=== PATIENT | female | born 1975 | race African-American/Black ===

== ENCOUNTER 2019-02-27 19:19 | Emergency (ER) | payer MEDICAID ==
[~2019-02-27] VITALS: Ht 170.2 cm; Wt 61.2 kg
[2019-02-27] MEDS ORDERED: ACETAMINOPHEN 500 MG TAB PO ONE ×2 (19:29→19:30)
[2019-02-27 22:27] VITALS: BP 161/84
== END 2019-02-27 22:28 | disposition home or self-care (01) ==
LOC: ER 19:20
DX: S83.92XA Sprain of unspecified site of left knee, initial encounter (principal); I10 Essential (primary) hypertension; V43.52XA Car driver injured in collision with other type car in traffic accident, initial encounter; Y93.89 Activity, other specified; Y92.488 Other paved roadways as the place of occurrence of the external cause; Y99.8 Other external cause status
CPT/HCPCS: 73564

== ENCOUNTER 2021-12-04 15:14 | Emergency (ER) | payer MEDICAID ==
[~2021-12-04] VITALS: Ht 170.2 cm; Wt 76.0 kg
[2021-12-04 16:02] VITALS: BP 184/110
[2021-12-04] MEDS ORDERED: CEPH-510 PO (16:39)
[2021-12-04] MEDS ORDERED: TRIA0.02 TOP (16:39)
== END 2021-12-04 16:59 | disposition home or self-care (01) ==
LOC: ER 15:14
DX: L23.9 Allergic contact dermatitis, unspecified cause (principal); M67.432 Ganglion, left wrist; I10 Essential (primary) hypertension

== ENCOUNTER 2022-02-03 02:32 | Emergency (ER) | payer MEDICAID ==
[~2022-02-03] VITALS: Ht 170.2 cm; Wt 52.3 kg
[~2022-02-03 02:32] MED LIST: CEPH-510 PO; TRIA0.02 TOP
[2022-02-03 05:18] VITALS: BP 156/95
[2022-02-03] MEDS ORDERED: AMOX-277 PO (05:37)
[2022-02-03] MEDS ORDERED: PRED20TA2 PO (05:37)
== END 2022-02-03 06:05 | disposition home or self-care (01) ==
LOC: ER 02:32
DX: J06.9 Acute upper respiratory infection, unspecified (principal); I10 Essential (primary) hypertension; Z20.822 Contact with and (suspected) exposure to COVID-19
CPT/HCPCS: 36415; 71046; 87426; 87804

== ENCOUNTER 2022-06-30 19:07 | Inpatient (IN) | payer MEDICAID ==
[~2022-06-30] VITALS: Ht 170.2 cm; Wt 48.0 kg
[~2022-06-30 19:07] MED LIST changes: +AMOX-277 PO; +PRED20TA2 PO
[2022-06-30] MEDS ORDERED: MORPHINE SULFATE INJ 2 MG/ml SYRG ONE (20:09)
[2022-06-30] MEDS ORDERED: HEPARIN SODIUM (PORCINE) 5000 UNITS/ML 1ML VIAL ONE (20:09)
[2022-06-30] MEDS ORDERED: ONDANSETRON HCL 4 MG/2 ML VIAL ONE (20:10)
[2022-06-30] MEDS ORDERED: METOPROLOL TARTRATE 1MG/1ML-5ML VIAL IV ONE (20:15)
[2022-06-30] MEDS ORDERED: HEPARIN SODIUM (PORCINE) 5000 UNITS/ML 1ML VIAL IV ONE (20:15)
[2022-06-30] MEDS ORDERED: MORPHINE SULFATE INJ 2 MG/ml SYRG IV ONE (20:15)
[2022-06-30] MEDS ORDERED: ONDANSETRON HCL 4 MG/2 ML VIAL IV ONE (20:15)
[2022-06-30] MEDS ORDERED: HEPARIN DRIP/D5W 100UNITS/ML 250 ML IV SCH (20:15)
[2022-06-30] MEDS ORDERED: SODIUM CHLORIDE 0.9% 500 ML IV ONE (20:30)
[2022-06-30 20:56] LABS: Albumin 3.1 g/dL (3.4-5.0); Calcium 8.5 mg/dL (8.5-10.1)
[2022-06-30 20:57] LABS: Hemoglobin 7.7 g/dL (12.2-16.2); Mean Corpuscular Hemoglobin 20.1 pg (28.0-32.0); Red Blood Cells 3.83 10^6/uL (4.0-5.20); White Blood Cell 4.8 10^3/uL (4.4-10.8)
[2022-06-30 20:58] LABS: Hematocrit 25.1 % (36.0-46.0); Mean Corpuscular Hgb Conc. 30.6 g/dL (32.0-36.0); Mean Corpuscular Volume 65.6 fL (80.0-100.0)
[2022-06-30 21:00] LABS: BUN/Creatinine Ratio 13.9 (10.0-20.0); Bilirubin, Total 0.4 mg/dL (0.2-1.0); Red Cell Distribution Width 20.6 % (11.8-14.3); Total Protein 7.2 g/dL (6.4-8.2)
[2022-06-30] MEDS ORDERED: dilTIAZem 25 MG/5 ML VIAL IV ONE (21:00)
[2022-06-30] MEDS ORDERED: LORazepam 2MG/ML-1ML VIAL IV ONE (21:00)
[2022-06-30 21:01] LABS: Basophils % (manual) 0 (0.0-2.0); Blast Cells 0; Metamyelocytes % 0; Myelocytes % 0; Promyelocytes % 0; Reactive Lymphocytes 0
[2022-06-30 21:06] LABS: Potassium 2.4 mmol/L (3.5-5.1)
[2022-06-30 21:11] LABS: INR 1.04 (0.9-1.15); Partial Thromboplastin Time 34.3 sec (24.6-33.4)
[2022-06-30] MEDS ORDERED: ALBUMIN 5% 250 ML IV ONE (21:30)
[2022-06-30 21:36] LABS: Band Neutrophils % (manual) 5; Eosinophils % (manual) 5 (0-7); Lymphocytes % (manual) 28 (10.0-50.0); Monocytes % (manual) 9 (0-12)
[2022-06-30] MEDS ORDERED: NOREPINEPHRINE 8 MG/250ML KIT 250 ML IV ONE (21:42)
[2022-06-30] MEDS ORDERED: NOREPINEPHRINE 8 MG/250ML KIT 250 ML IV SCH (21:45)
[2022-06-30] MEDS ORDERED: FUROSEMIDE 20 MG/2 ML VIAL IV ONE (22:15)
[2022-06-30] MEDS ORDERED: ONDANSETRON HCL 4 MG/2 ML VIAL IV PRN (22:15)
[2022-06-30] MEDS ORDERED: MORPHINE SULFATE INJ 2 MG/ml SYRG IV PRN (22:15)
[2022-06-30] MEDS ORDERED: NITROGLYCERIN 0.4 MG SL TAB SL PRN (22:15)
[2022-06-30] MEDS: POTASSIUM CHL 20MEQ/100ML 100 ML IV SCH (23:20)
[2022-06-30 23:33] LABS: Lactic Acid w/Reflex 2.6 mmol/L (0.4-2.0)
[2022-07-01] VITALS (7 sets, daily range): BP systolic 118–131; BP diastolic 74–96
[2022-07-01] MEDS: POTASSIUM CHL 20MEQ/100ML 100 ML IV SCH ×2 (01:36→04:00)
[2022-07-01 02:17] LABS: Urine Bacteria NONE SEEN /hpf (None Seen); Urine Blood Negative /uL (Negative); Urine Specific Gravity 1.004 (1.001-1.035); Urine WBC <1 /hpf (0 - 5)
[2022-07-01 04:09] LABS: Hemoglobin 7.2 g/dL (12.2-16.2); White Blood Cell 4.2 10^3/uL (4.4-10.8)
[2022-07-01 04:12] LABS: Hematocrit 22.9 % (36.0-46.0); Mean Corpuscular Hemoglobin 21.7 pg (28.0-32.0); Mean Corpuscular Hgb Conc. 31.5 g/dL (32.0-36.0); Red Blood Cells 3.32 10^6/uL (4.0-5.20)
[2022-07-01 04:18] LABS: Red Cell Distribution Width 21.7 % (11.8-14.3)
[2022-07-01 04:19] LABS: Basophils % (manual) 0 (0.0-2.0); Blast Cells 0; Metamyelocytes % 0; Monocytes % (manual) 0 (0-12); Myelocytes % 0; Promyelocytes % 0; Reactive Lymphocytes 0
[2022-07-01 04:33] LABS: Potassium 3.3 mmol/L (3.5-5.1)
[2022-07-01 04:39] LABS: INR 1.14 (0.9-1.15)
[2022-07-01 04:42] LABS: Albumin 2.9 g/dL (3.4-5.0); BUN/Creatinine Ratio 15.2 (10.0-20.0); Bilirubin, Total 0.4 mg/dL (0.2-1.0); Calcium 7.9 mg/dL (8.5-10.1); Total Protein 6.1 g/dL (6.4-8.2)
[2022-07-01 04:46] LABS: Partial Thromboplastin Time 97.1 sec (24.6-33.4)
[2022-07-01] MEDS ORDERED: HEPARIN DRIP/D5W 100UNITS/ML 250 ML IV SCH (05:00)
[2022-07-01 05:08] LABS: Band Neutrophils % (manual) 7; Eosinophils % (manual) 13 (0-7); Lymphocytes % (manual) 36 (10.0-50.0)
[2022-07-01] MEDS: ASPirin 81 mg TAB PO SCH (10:00)
[2022-07-01] MEDS ORDERED: AMOXICILLIN/CLAVUL 875 MG TAB PO SCH (10:00)
[2022-07-01] MEDS: PANTOPRAZOLE 40 MG TAB PO SCH (10:00)
[2022-07-01 12:57] LABS: INR 1.03 (0.9-1.15); Partial Thromboplastin Time 34.8 sec (24.6-33.4)
[2022-07-01] MEDS: FERROUS SULFATE 325mg EC TAB PO SCH (18:08)
[2022-07-01] MEDS: ATORVASTATIN 20 MG TAB PO SCH (22:20)
[2022-07-02] VITALS (8 sets, daily range): BP systolic 117–160; BP diastolic 91–114
[2022-07-02 05:44] LABS: Hemoglobin 8.8 g/dL (12.2-16.2)
[2022-07-02 05:46] LABS: Hematocrit 27.8 % (36.0-46.0); Mean Corpuscular Hemoglobin 21.5 pg (28.0-32.0); Mean Corpuscular Hgb Conc. 31.8 g/dL (32.0-36.0); Mean Corpuscular Volume 67.8 fL (80.0-100.0); Red Blood Cells 4.09 10^6/uL (4.0-5.20); White Blood Cell 5.2 10^3/uL (4.4-10.8)
[2022-07-02 06:03] LABS: BUN/Creatinine Ratio 12.5 (10.0-20.0)
[2022-07-02 06:05] LABS: Red Cell Distribution Width 21.9 % (11.8-14.3)
[2022-07-02 06:06] LABS: Basophils % (manual) 0 (0.0-2.0); Blast Cells 0; Metamyelocytes % 0; Myelocytes % 0; Promyelocytes % 0; Reactive Lymphocytes 0
[2022-07-02 06:13] LABS: Potassium 2.9 mmol/L (3.5-5.1)
[2022-07-02] MEDS ORDERED: ACETAMINOPHEN 325 MG TAB PO ONE (06:30)
[2022-07-02] MEDS ORDERED: dilTIAZem 25 MG/5 ML VIAL IV ONE (06:30)
[2022-07-02] MEDS ORDERED: POTASSIUM CHL 20 Meq TABLET PO ONE (06:30)
[2022-07-02] MEDS ORDERED: LABETALOL HCL 5 MG/ML 4ML SYRINGE IV ONE (06:45)
[2022-07-02] MEDS: FERROUS SULFATE 325mg EC TAB PO SCH ×2 (08:16→17:30)
[2022-07-02 08:27] LABS: Band Neutrophils % (manual) 5; Eosinophils % (manual) 14 (0-7); Lymphocytes % (manual) 28 (10.0-50.0); Monocytes % (manual) 3 (0-12)
[2022-07-02] MEDS: MULTIPLE VITAMIN TAB PO SCH (09:27)
[2022-07-02] MEDS: ASPirin 81 mg TAB PO SCH (09:27)
[2022-07-02] MEDS: FOLIC ACID 1 MG TAB PO SCH (09:27)
[2022-07-02] MEDS: PANTOPRAZOLE 40 MG TAB PO SCH (09:27)
[2022-07-02] MEDS ORDERED: METOPROLOL SUCCINATE XL 50 MG TAB PO SCH (11:15)
[2022-07-02] MEDS ORDERED: LABETALOL HCL 5 MG/ML 4ML SYRINGE IV PRN (22:00)
[2022-07-02] MEDS: ATORVASTATIN 20 MG TAB PO SCH (23:12)
[2022-07-03 05:00] VITALS: BP 162/105
[2022-07-03 05:42] LABS: Hematocrit 28.3 % (36.0-46.0)
[2022-07-03 05:43] LABS: Hemoglobin 8.9 g/dL (12.2-16.2); Mean Corpuscular Hemoglobin 21.5 pg (28.0-32.0); Mean Corpuscular Hgb Conc. 31.3 g/dL (32.0-36.0); Mean Corpuscular Volume 68.6 fL (80.0-100.0); Red Blood Cells 4.13 10^6/uL (4.0-5.20); White Blood Cell 6.1 10^3/uL (4.4-10.8)
[2022-07-03 05:49] LABS: Red Cell Distribution Width 22.1 % (11.8-14.3)
[2022-07-03 05:51] LABS: Basophils % (manual) 0 (0.0-2.0); Blast Cells 0; Metamyelocytes % 0; Myelocytes % 0; Promyelocytes % 0; Reactive Lymphocytes 0
[2022-07-03 06:05] LABS: BUN/Creatinine Ratio 12.5 (10.0-20.0)
[2022-07-03 06:17] LABS: Potassium 2.9 mmol/L (3.5-5.1)
[2022-07-03] MEDS ORDERED: POTASSIUM CHL 20 Meq TABLET PO ONE (07:00)
[2022-07-03] MEDS ORDERED: POTASSIUM CHL 20MEQ/100ML 100 ML IV ONE (07:00)
[2022-07-03 07:52] LABS: Band Neutrophils % (manual) 6; Eosinophils % (manual) 8 (0-7); Lymphocytes % (manual) 43 (10.0-50.0); Monocytes % (manual) 3 (0-12)
[2022-07-03] MEDS ORDERED: POTASSIUM CHLORIDE 40 MEQ, LIDOCAINE 1% (LOCAL ANESTH.) 4 ML in SODIUM CHL 0.9% 250 ML IV ONE (08:00)
[2022-07-03] MEDS: FERROUS SULFATE 325mg EC TAB PO SCH (08:54)
[2022-07-03 09:00] VITALS: BP 154/102
[2022-07-03] MEDS ORDERED: LISINOPRIL 10 MG TAB PO SCH (10:00)
[2022-07-03] MEDS ORDERED: METOPROLOL SUCCINATE XL 50 MG TAB PO SCH (10:00)
[2022-07-03] MEDS ORDERED: LOSARTAN POTASSIUM 25 MG TAB PO SCH (10:00)
[2022-07-03 10:51] VITALS: BP 154/102
[2022-07-03] MEDS: ASPirin 81 mg TAB PO SCH (10:52)
[2022-07-03] MEDS: FOLIC ACID 1 MG TAB PO SCH (10:54)
[2022-07-03] MEDS: PANTOPRAZOLE 40 MG TAB PO SCH (10:54)
[2022-07-03] MEDS: MULTIPLE VITAMIN TAB PO SCH (10:54)
[2022-07-03 13:00] VITALS: BP 150/101
[2022-07-03] MEDS ORDERED: METO-6 PO (14:54)
[2022-07-03] MEDS ORDERED: LISI-716 PO (14:54)
== END 2022-07-03 15:30 | disposition home or self-care (01) | DRG 190 ==
LOC: ER 19:07 → TELE 22:26 → TELE-EAST 07-01 22:49
PROVIDERS: ADMIT Nurse Practitioner; ATTEND Nurse Practitioner Acute Care
PROC: 30233N1 Transfusion of Nonautologous Red Blood Cells into Peripheral Vein, Percutaneous Approach (ICD-10-PCS; principal; 2022-07-01)
DX: I21.3 ST elevation (STEMI) myocardial infarction of unspecified site (principal); J96.00 Acute respiratory failure, unspecified whether with hypoxia or hypercapnia; I50.21 Acute systolic (congestive) heart failure; R64 Cachexia; D69.6 Thrombocytopenia, unspecified; I42.1 Obstructive hypertrophic cardiomyopathy; D50.9 Iron deficiency anemia, unspecified; D25.9 Leiomyoma of uterus, unspecified; I08.1 Rheumatic disorders of both mitral and tricuspid valves; N18.9 Chronic kidney disease, unspecified; R54 Age-related physical debility; E87.6 Hypokalemia; I48.91 Unspecified atrial fibrillation; Z68.1 Body mass index [BMI] 19.9 or less, adult; Z79.899 Other long term (current) drug therapy; Z82.3 Family history of stroke; Z82.49 Family history of ischemic heart disease and other diseases of the circulatory system
CPT/HCPCS: 36415; 36430; 71045; 76937; 80048; 80053; 81001; 83605; 83880; 84132; 84484; 85007; 85027; 85045; 85610; 85730; 86850; 86880; 86900; 86901; 86920; 93005; 93306; 96361; 96365; 96368; 96375; G0378; J2001; J2405; J3480; J3490

== ENCOUNTER 2022-09-18 17:55 | Inpatient (IN) | payer MEDICAID ==
[~2022-09-18] VITALS: Ht 170.2 cm; Wt 44.4 kg
[~2022-09-18 17:55] MED LIST changes: -AMOX-277 PO; +AMOX875T4 PO; +LISI10TA34 PO; +METO-6 PO
[2022-09-18 19:10] LABS: Basophils # (auto) 0 10 ^3/uL (0-0.2); Hemoglobin 10.9 g/dL (12.2-16.2); Monocytes # (auto) 0.4 10 ^3/uL (0-1.3); Monocytes % (auto) 10.4 % (0.0-12.0)
[2022-09-18 19:12] LABS: Basophils % (auto) 0.8 % (0.0-2.0); Eosinophils # (auto) 0.1 10 ^3/uL (0-0.8); Eosinophils % (auto) 3.1 % (0.0-7.0); Hematocrit 34.1 % (36.0-46.0); Lymphocytes # (auto) 1.8 10 ^3/uL (0.4-5.4); Lymphocytes % (auto) 43.8 % (10.0-50.0); Mean Corpuscular Hemoglobin 22.6 pg (28.0-32.0); Mean Corpuscular Volume 70.7 fL (80.0-100.0); Neutrophils # (auto) 1.7 10 ^3/uL (1.6-8.6); Neutrophils % (auto) 41.9 % (37.0-80.0); Nucleated Red Blood Cells % 0.5 %; Red Blood Cells 4.82 10^6/uL (4.0-5.20); Red Cell Distribution Width 21.7 % (11.8-14.3)
[2022-09-18 19:28] LABS: INR 0.97 (0.9-1.15); Partial Thromboplastin Time 30.4 SEC (24.5-34.5)
[2022-09-18 19:31] LABS: Albumin 3.5 g/dL (3.4-5.0); Magnesium 2.8 mg/dL (1.6-2.6)
[2022-09-18 19:36] LABS: BUN/Creatinine Ratio 8.8 (10.0-20.0); Bilirubin, Total 0.5 mg/dL (0.2-1.0); Total Protein 7.8 g/dL (6.4-8.2)
[2022-09-18] MEDS ORDERED: IOHEXOL 350 MG/ML 100ML IJ ONE (19:40)
[2022-09-18 19:45] VITALS: PULSE 72; RESP 22; O2SAT 97
[2022-09-18 20:13] LABS: Potassium 2.2 mmol/L (3.5-5.1)
[2022-09-18] MEDS ORDERED: SODIUM CHLORIDE 0.9% 1,000 ML IV ONE ×2 (20:15→22:00)
[2022-09-18] MEDS ORDERED: POTASSIUM CHL 20 Meq TABLET PO ONE (20:30)
[2022-09-18] MEDS ORDERED: POTASSIUM CHL 20MEQ/100ML 100 ML IV ONE (20:30)
[2022-09-18] MEDS ORDERED: ACETAMINOPHEN 325 MG TAB PO PRN (21:30)
[2022-09-18] MEDS ORDERED: ONDANSETRON HCL 4 MG/2 ML VIAL IV PRN (21:30)
[2022-09-18] MEDS ORDERED: HYDROcodone-ACET 5/325MG TAB PO PRN (21:30)
[2022-09-18] MEDS ORDERED: DOCUSATE SOD 100 MG CAP PO PRN (21:30)
[2022-09-18] MEDS ORDERED: HEPARIN SODIUM (PORCINE) 5000 UNITS/ML 1ML VIAL IV ONE (21:30)
[2022-09-18] MEDS ORDERED: MORPHINE SULFATE INJ 2 MG/ml SYRG IV PRN (21:45)
[2022-09-18] MEDS ORDERED: NITROGLYCERIN 0.4 MG SL TAB SL PRN (21:45)
[2022-09-18] MEDS ORDERED: NOREPINEPHRINE 8 MG/250ML KIT 250 ML IV ONE (22:12)
[2022-09-18] MEDS: NOREPINEPHRINE 8 MG/250ML KIT 250 ML IV SCH (22:19)
[2022-09-18] MEDS: SODIUM CHLOR 0.9% PF (SALINE LOCK) 10ML VIAL/SYR IV SCH (22:19)
[2022-09-18] MEDS: FAMOTIDINE (10MG/ML) 2ML VL IV SCH (23:09)
[2022-09-19] VITALS (49 sets, daily range): BP systolic 95–138; BP diastolic 50–79; PULSE 56–77; RESP 11–25; TEMP 96.4–98.3; O2SAT 77–100
[2022-09-19] MEDS ORDERED: SODIUM BICARBONATE 8.4 % INJ 50ML VIAL IV ONE (03:15)
[2022-09-19] MEDS: SODIUM CHLOR 0.9% PF (SALINE LOCK) 10ML VIAL/SYR IV SCH ×3 (05:38→22:30)
[2022-09-19 06:48] LABS: Basophils # (auto) 0 10 ^3/uL (0-0.2); Eosinophils # (auto) 0 10 ^3/uL (0-0.8); Hemoglobin 8.7 g/dL (12.2-16.2); Lymphocytes # (auto) 1.1 10 ^3/uL (0.4-5.4)
[2022-09-19 06:50] LABS: Basophils % (auto) 0.3 % (0.0-2.0); Eosinophils % (auto) 1.4 % (0.0-7.0); Hematocrit 26.7 % (36.0-46.0); Lymphocytes % (auto) 32.3 % (10.0-50.0); Mean Corpuscular Hemoglobin 22.8 pg (28.0-32.0); Mean Corpuscular Hgb Conc. 32.4 g/dL (32.0-36.0); Mean Corpuscular Volume 70.2 fL (80.0-100.0); Monocytes # (auto) 0.3 10 ^3/uL (0-1.3); Monocytes % (auto) 9.1 % (0.0-12.0); Neutrophils % (auto) 56.9 % (37.0-80.0); Nucleated Red Blood Cells % 0.6 %; Red Blood Cells 3.81 10^6/uL (4.0-5.20); White Blood Cell 3.5 10^3/uL (4.4-10.8)
[2022-09-19 07:01] LABS: Red Cell Distribution Width 21.3 % (11.8-14.3)
[2022-09-19 07:15] LABS: Albumin 2.7 g/dL (3.4-5.0); BUN/Creatinine Ratio 9.2 (10.0-20.0); Bilirubin, Total 0.6 mg/dL (0.2-1.0); Calcium 7.6 mg/dL (8.5-10.1); Total Protein 6.4 g/dL (6.4-8.2)
[2022-09-19 07:37] LABS: Potassium 2.1 mmol/L (3.5-5.1)
[2022-09-19 08:29] LABS: Cholesterol 123 mg/dL (< 200); HDL Cholesterol 32 mg/dL (40-59); LDL Cholesterol 67 mg/dL (< 100); Triglycerides 158 mg/dL (< 150)
[2022-09-19] MEDS: POTASSIUM CHL 20MEQ/100ML 100 ML IV SCH ×6 (08:43→22:50)
[2022-09-19] MEDS ORDERED: POTASSIUM CHL 20 Meq TABLET PO ONE (09:00)
[2022-09-19] MEDS: B-COMPLEX W/ C & FOLIC ACID(NEPHROVITE TAB) PO SCH (09:35)
[2022-09-19] MEDS: ASPirin 81 mg TAB PO SCH (09:35)
[2022-09-19] MEDS: HEPARIN SODIUM (PORCINE) 5000 UNITS/ML 1ML VIAL SC SCH ×2 (09:37→22:30)
[2022-09-19] MEDS ORDERED: FUROSEMIDE 20 MG/2 ML VIAL IV SCH (10:00)
[2022-09-19 13:16] LABS: Urine Bacteria FEW /hpf (None Seen); Urine Blood 3+ /uL (Negative); Urine Mucus FEW (None Seen); Urine Specific Gravity 1.014 (1.001-1.035); Urine WBC 25 /hpf (0 - 5)
[2022-09-19 13:36] LABS: Alcohol, Urine < 3.0 mg/dL (0-10); Amphetamine Screen, Urine POSITIVE (NEGATIVE); Barbiturate Scree,Urine NEGATIVE (NEGATIVE); Benzodiazephine Screen, Urine NEGATIVE (NEGATIVE); Cannabinoid Screen, Urine NEGATIVE (NEGATIVE); Cocaine Screen, Urine NEGATIVE (NEGATIVE)
[2022-09-19 13:43] LABS: Opiate Scree,Urine NEGATIVE (NEGATIVE); Phencyclidine Screen, Urine NEGATIVE (NEGATIVE)
[2022-09-19] MEDS ORDERED: POTASSIUM CHLORIDE 60 MEQ, LIDOCAINE 1% (LOCAL ANESTH.) 6 ML in SODIUM CHL 0.9% 500 ML IV ONE (19:45)
[2022-09-20] VITALS (24 sets, daily range): BP systolic 102–141; BP diastolic 56–95; PULSE 56–89; RESP 11–33; TEMP 97.9–99; O2SAT 50–100
[2022-09-20] MEDS: POTASSIUM CHL 20MEQ/100ML 100 ML IV SCH ×4 (00:47→11:45)
[2022-09-20 03:58] LABS: Hemoglobin 7.9 g/dL (12.2-16.2); White Blood Cell 2.9 10^3/uL (4.4-10.8)
[2022-09-20 04:01] LABS: Hematocrit 24.3 % (36.0-46.0); Mean Corpuscular Hemoglobin 23.2 pg (28.0-32.0); Mean Corpuscular Hgb Conc. 32.5 g/dL (32.0-36.0); Mean Corpuscular Volume 71.4 fL (80.0-100.0)
[2022-09-20 04:16] LABS: Potassium 3.1 mmol/L (3.5-5.1)
[2022-09-20 04:17] LABS: Red Cell Distribution Width 21.5 % (11.8-14.3)
[2022-09-20 04:20] LABS: Band Neutrophils % (manual) 0; Basophils % (manual) 0 (0.0-2.0); Blast Cells 0; Eosinophils % (manual) 0 (0-7); Promyelocytes % 0
[2022-09-20 04:22] LABS: Albumin 2.7 g/dL (3.4-5.0); BUN/Creatinine Ratio 10.2 (10.0-20.0); Bilirubin, Total 0.3 mg/dL (0.2-1.0); Phosphorus 4.4 mg/dL (2.5-4.90); Total Protein 6.5 g/dL (6.4-8.2); Uric Acid 12.2 mg/dL (2.6-6.0)
[2022-09-20 05:18] LABS: Lymphocytes % (manual) 47 (10.0-50.0); Metamyelocytes % 2; Monocytes % (manual) 1 (0-12); Myelocytes % 3; Reactive Lymphocytes 2
[2022-09-20] MEDS: SODIUM CHLOR 0.9% PF (SALINE LOCK) 10ML VIAL/SYR IV SCH ×3 (06:04→22:19)
[2022-09-20] MEDS ORDERED: LOPERAMIDE HCL 2 MG CAP/TAB PO ONE (08:00)
[2022-09-20] MEDS: NOREPINEPHRINE 8 MG/250ML KIT 250 ML IV SCH ×2 (08:15→22:00)
[2022-09-20] MEDS: SODIUM CHLORIDE 0.9% 1,000 ML IV SCH ×2 (08:17→22:32)
[2022-09-20] MEDS: ASPirin 81 mg TAB PO SCH (09:38)
[2022-09-20] MEDS: B-COMPLEX W/ C & FOLIC ACID(NEPHROVITE TAB) PO SCH (09:38)
[2022-09-20] MEDS: HEPARIN SODIUM (PORCINE) 5000 UNITS/ML 1ML VIAL SC SCH ×2 (09:39→22:24)
[2022-09-20] MEDS ORDERED: POTASSIUM PHOSPHATE 22 MEQ in SODIUM CHL 0.9% 100 ML IV ONE (12:15)
[2022-09-20 13:41] LABS: Urine Bacteria FEW /hpf (None Seen); Urine Blood 2+ /uL (Negative); Urine Specific Gravity 1.011 (1.001-1.035); Urine WBC 8 /hpf (0 - 5)
[2022-09-20 14:08] LABS: Protein, Urine 90.9 mg/dL (0.0-11.9)
[2022-09-20 16:43] LABS: Magnesium 1.9 mg/dL (1.6-2.6); Potassium 3.5 mmol/L (3.5-5.1)
[2022-09-20] MEDS: LOPERAMIDE HCL 2 MG CAP/TAB PO PRN ×2 (17:49→22:54)
[2022-09-20] MEDS: FAMOTIDINE (10MG/ML) 2ML VL IV SCH (22:18)
[2022-09-20] MEDS ORDERED: LORazepam 2MG/ML-1ML VIAL IV PRN (23:00)
[2022-09-21] VITALS (20 sets, daily range): BP systolic 103–153; BP diastolic 52–89; PULSE 60–90; RESP 10–30; TEMP 98.2–99.2; O2SAT 81–100
[2022-09-21 05:06] LABS: % Iron Saturation 5.5 % (15-50); Thyroid Stimulating Hormone 0.35 uIU/mL (0.358-3.74)
[2022-09-21 05:07] LABS: Alanine Aminotransferase 26 U/L (13-56); Albumin 2.7 g/dL (3.4-5.0); Alkaline Phosphatase 96 U/L (45-117); Aspartate Aminotransferase 33 U/L (15-37); Bilirubin, Direct < 0.1 mg/dL (0-0.2); Bilirubin, Total 0.4 mg/dL (0.2-1.0); Total Protein 6.5 g/dL (6.4-8.2)
[2022-09-21 05:11] LABS: Ferritin 242.1 ng/mL (10-322)
[2022-09-21] MEDS: SODIUM CHLOR 0.9% PF (SALINE LOCK) 10ML VIAL/SYR IV SCH ×3 (06:20→22:31)
[2022-09-21 08:04] LABS: Folate (Folic Acid) 22.42 ng/mL (5.38-24)
[2022-09-21 09:04] LABS: Hematocrit 24.2 % (36.0-46.0); Hemoglobin 7.6 g/dL (12.2-16.2); Mean Corpuscular Hemoglobin 22.6 pg (28.0-32.0); Mean Corpuscular Hgb Conc. 31.5 g/dL (32.0-36.0); Mean Corpuscular Volume 71.7 fL (80.0-100.0); Red Blood Cells 3.38 10^6/uL (4.0-5.20); Red Cell Distribution Width 22.3 % (11.8-14.3); White Blood Cell 2.3 10^3/uL (4.4-10.8)
[2022-09-21 09:05] LABS: Basophils % (manual) 0 (0.0-2.0); Blast Cells 0; Promyelocytes % 0; Reactive Lymphocytes 0
[2022-09-21 09:06] LABS: Albumin 2.7 g/dL (3.4-5.0); BUN/Creatinine Ratio 13.2 (10.0-20.0); Calcium 8.3 mg/dL (8.5-10.1); Phosphorus 3.6 mg/dL (2.5-4.90); Potassium 3.2 mmol/L (3.5-5.1)
[2022-09-21 09:53] LABS: Band Neutrophils % (manual) 9; Eosinophils % (manual) 2 (0-7); Lymphocytes % (manual) 46 (10.0-50.0); Metamyelocytes % 1; Monocytes % (manual) 8 (0-12); Myelocytes % 3
[2022-09-21] MEDS: SODIUM CHLORIDE 0.9% 1,000 ML IV SCH (10:40)
[2022-09-21] MEDS ORDERED: POTASSIUM CHL 20 Meq TABLET PO ONE (11:00)
[2022-09-21] MEDS: B-COMPLEX W/ C & FOLIC ACID(NEPHROVITE TAB) PO SCH (11:25)
[2022-09-21] MEDS: ASPirin 81 mg TAB PO SCH (11:25)
[2022-09-21] MEDS: LOPERAMIDE HCL 2 MG CAP/TAB PO PRN ×2 (11:25→17:14)
[2022-09-21 20:00] LABS: Cholesterol 102 mg/dL (< 200); HDL Cholesterol 35 mg/dL (40-59); LDL Cholesterol 50 mg/dL (< 100); Triglycerides 155 mg/dL (< 150)
[2022-09-21] MEDS ORDERED: ATORVASTATIN 20 MG TAB PO SCH (22:00)
[2022-09-21] MEDS: NOREPINEPHRINE 8 MG/250ML KIT 250 ML IV SCH (22:00)
[2022-09-22] VITALS (7 sets, daily range): BP systolic 101–112; BP diastolic 58–70; PULSE 79–99; RESP 17–20; TEMP 98–99.1; O2SAT 93–100
[2022-09-22 03:44] LABS: Hemoglobin 7.3 g/dL (12.2-16.2); Mean Corpuscular Hgb Conc. 31.7 g/dL (32.0-36.0); Mean Corpuscular Volume 72.5 fL (80.0-100.0); Red Blood Cells 3.17 10^6/uL (4.0-5.20); White Blood Cell 2.4 10^3/uL (4.4-10.8)
[2022-09-22 03:45] LABS: Red Cell Distribution Width 22.2 % (11.8-14.3)
[2022-09-22 03:47] LABS: Albumin 2.5 g/dL (3.4-5.0); Basophils % (manual) 0 (0.0-2.0); Blast Cells 0; Calcium 8.2 mg/dL (8.5-10.1); Metamyelocytes % 0; Potassium 3.6 mmol/L (3.5-5.1); Promyelocytes % 0; Reactive Lymphocytes 0
[2022-09-22 03:52] LABS: BUN/Creatinine Ratio 17.2 (10.0-20.0); Bilirubin, Total 0.2 mg/dL (0.2-1.0); Total Protein 6.3 g/dL (6.4-8.2)
[2022-09-22 04:28] LABS: Eosinophils % (manual) 3 (0-7); Monocytes % (manual) 11 (0-12); Myelocytes % 1
[2022-09-22 04:29] LABS: Band Neutrophils % (manual) 6; Lymphocytes % (manual) 28 (10.0-50.0)
[2022-09-22] MEDS: SODIUM CHLOR 0.9% PF (SALINE LOCK) 10ML VIAL/SYR IV SCH ×3 (06:14→22:45)
[2022-09-22] MEDS: B-COMPLEX W/ C & FOLIC ACID(NEPHROVITE TAB) PO SCH (09:43)
[2022-09-22] MEDS: ASPirin 81 mg TAB PO SCH (09:43)
[2022-09-22] MEDS: SODIUM CHLORIDE 0.9% 1,000 ML IV SCH ×2 (11:52)
[2022-09-22] MEDS: LACTATED RINGER'S 1,000 ML IV SCH (13:50)
[2022-09-22] MEDS: SODIUM FERR GLUC 62.5MG/5ML 125 MG in SODIUM CHL 0.9% 100 ML IV SCH (15:28)
[2022-09-22] MEDS: LOPERAMIDE HCL 2 MG CAP/TAB PO PRN (15:29)
[2022-09-22] MEDS: FAMOTIDINE (10MG/ML) 2ML VL IV SCH (22:45)
[2022-09-23] VITALS (7 sets, daily range): BP systolic 103–117; BP diastolic 54–75; PULSE 83–95; RESP 16–20; TEMP 97.5–98.6; O2SAT 95–100
[2022-09-23] MEDS: LACTATED RINGER'S 1,000 ML IV SCH ×2 (03:05→14:13)
[2022-09-23] MEDS: SODIUM CHLOR 0.9% PF (SALINE LOCK) 10ML VIAL/SYR IV SCH ×3 (05:29→22:15)
[2022-09-23 09:37] LABS: Basophils # (auto) 0 10 ^3/uL (0-0.2); Hemoglobin 7.4 g/dL (12.2-16.2); Monocytes # (auto) 0.3 10 ^3/uL (0-1.3); Neutrophils # (auto) 1.1 10 ^3/uL (1.6-8.6); Nucleated Red Blood Cells % 0.2 %
[2022-09-23 09:39] LABS: Basophils % (auto) 0.6 % (0.0-2.0); Eosinophils # (auto) 0.2 10 ^3/uL (0-0.8); Eosinophils % (auto) 6.3 % (0.0-7.0); Hematocrit 24.1 % (36.0-46.0); Lymphocytes % (auto) 37.6 % (10.0-50.0); Mean Corpuscular Hemoglobin 23.3 pg (28.0-32.0); Mean Corpuscular Hgb Conc. 30.7 g/dL (32.0-36.0); Mean Corpuscular Volume 75.8 fL (80.0-100.0); Monocytes % (auto) 11.2 % (0.0-12.0); Neutrophils % (auto) 44.3 % (37.0-80.0); Red Blood Cells 3.18 10^6/uL (4.0-5.20); Red Cell Distribution Width 23.2 % (11.8-14.3); White Blood Cell 2.6 10^3/uL (4.4-10.8)
[2022-09-23 09:51] LABS: BUN/Creatinine Ratio 19.6 (10.0-20.0); Calcium 8.3 mg/dL (8.5-10.1); Potassium 3.2 mmol/L (3.5-5.1)
[2022-09-23] MEDS: B-COMPLEX W/ C & FOLIC ACID(NEPHROVITE TAB) PO SCH (09:57)
[2022-09-23] MEDS: SODIUM FERR GLUC 62.5MG/5ML 125 MG in SODIUM CHL 0.9% 100 ML IV SCH (12:37)
[2022-09-23] MEDS: LOPERAMIDE HCL 2 MG CAP/TAB PO PRN (21:27)
[2022-09-23] MEDS ORDERED: FAMOTIDINE (10MG/ML) 2ML VL IV SCH (22:00)
[2022-09-24] MEDS: LOPERAMIDE HCL 2 MG CAP/TAB PO PRN ×2 (02:04→12:17)
[2022-09-24 05:00] VITALS: BP 101/56; PULSE 91; RESP 17; TEMP 98.7; O2SAT 100
[2022-09-24] MEDS: LACTATED RINGER'S 1,000 ML IV SCH (05:45)
[2022-09-24] MEDS: SODIUM CHLOR 0.9% PF (SALINE LOCK) 10ML VIAL/SYR IV SCH ×2 (06:00→14:29)
[2022-09-24 06:21] LABS: Hematocrit 22.3 % (36.0-46.0); Mean Corpuscular Hgb Conc. 31.6 g/dL (32.0-36.0)
[2022-09-24 06:32] LABS: Hemoglobin 7.1 g/dL (12.2-16.2); Mean Corpuscular Hemoglobin 23.1 pg (28.0-32.0); Mean Corpuscular Volume 73.3 fL (80.0-100.0); Red Blood Cells 3.05 10^6/uL (4.0-5.20); Red Cell Distribution Width 22.2 % (11.8-14.3); White Blood Cell 2.8 10^3/uL (4.4-10.8)
[2022-09-24 06:35] LABS: Basophils % (manual) 0 (0.0-2.0); Blast Cells 0; Metamyelocytes % 0; Myelocytes % 0; Promyelocytes % 0; Reactive Lymphocytes 0
[2022-09-24 06:40] LABS: Albumin 2.4 g/dL (3.4-5.0); BUN/Creatinine Ratio 20.6 (10.0-20.0); Bilirubin, Total 0.2 mg/dL (0.2-1.0); Calcium 8.1 mg/dL (8.5-10.1); Potassium 2.8 mmol/L (3.5-5.1); Total Protein 5.9 g/dL (6.4-8.2)
[2022-09-24] MEDS ORDERED: POTASSIUM CHL 20 Meq TABLET PO ONE (07:00)
[2022-09-24 07:55] LABS: Band Neutrophils % (manual) 5; Eosinophils % (manual) 1 (0-7); Lymphocytes % (manual) 53 (10.0-50.0); Monocytes % (manual) 3 (0-12)
[2022-09-24 08:00] VITALS: BP 112/61; PULSE 100; PULSE 93; RESP 20; TEMP 98.8; O2SAT 98
[2022-09-24] MEDS ORDERED: POTA-220 PO (08:24)
[2022-09-24] MEDS ORDERED: FERR-7 PO (08:24)
[2022-09-24] MEDS ORDERED: CALC10TA PO (08:26)
[2022-09-24 09:00] VITALS: BP_SYST 112; BP_SYST 127; BP_DIAS 61; BP_DIAS 74; PULSE 100; PULSE 85; RESP 18; RESP 20; TEMP 98; TEMP 98.8; O2SAT 95; O2SAT 98
[2022-09-24] MEDS: B-COMPLEX W/ C & FOLIC ACID(NEPHROVITE TAB) PO SCH (10:35)
[2022-09-24 11:01] VITALS: BP 112/61; PULSE 100; RESP 20; TEMP 98.8; O2SAT 98
[2022-09-24] MEDS: SODIUM FERR GLUC 62.5MG/5ML 125 MG in SODIUM CHL 0.9% 100 ML IV SCH (12:17)
[2022-09-24 13:00] VITALS: BP_SYST 108; BP_SYST 124; BP_DIAS 61; BP_DIAS 79; PULSE 82; PULSE 90; RESP 16; RESP 20; TEMP 98; O2SAT 100; O2SAT 92
== END 2022-09-24 14:56 | disposition home or self-care (01) | DRG 45 ==
LOC: ER 17:55 → TELE 21:58 → ICU WEST 09-19 08:06 → TELE-CENTR 09-21 21:00
PROVIDERS: ADMIT Family Medicine; ATTEND Family Medicine
DX: I63.9 Cerebral infarction, unspecified (principal); N17.0 Acute kidney failure with tubular necrosis; I21.4 Non-ST elevation (NSTEMI) myocardial infarction; E43 Unspecified severe protein-calorie malnutrition; D61.818 Other pancytopenia; I13.2 Hypertensive heart and chronic kidney disease with heart failure and with stage 5 chronic kidney disease, or end stage renal disease; D69.6 Thrombocytopenia, unspecified; I42.2 Other hypertrophic cardiomyopathy; N18.5 Chronic kidney disease, stage 5; N17.9 Acute kidney failure, unspecified; E87.8 Other disorders of electrolyte and fluid balance, not elsewhere classified; I65.23 Occlusion and stenosis of bilateral carotid arteries; I48.20 Chronic atrial fibrillation, unspecified; I95.9 Hypotension, unspecified; D50.9 Iron deficiency anemia, unspecified; F15.10 Other stimulant abuse, uncomplicated; D53.9 Nutritional anemia, unspecified; E87.6 Hypokalemia; I50.32 Chronic diastolic (congestive) heart failure; I08.1 Rheumatic disorders of both mitral and tricuspid valves; I25.2 Old myocardial infarction; Z82.49 Family history of ischemic heart disease and other diseases of the circulatory system; Z82.3 Family history of stroke; Z80.9 Family history of malignant neoplasm, unspecified; Z83.3 Family history of diabetes mellitus; Z68.1 Body mass index [BMI] 19.9 or less, adult
CPT/HCPCS: 36415; 36556; 36600; 70450; 70551; 71045; 74176; 80048; 80053; 80061; 80069; 80076; 80307; 81001; 82570; 82607; 82728; 82746; 82805; 82962; 83036; 83540; 83550; 83615; 83735; 83880; 84100; 84132; 84156; 84300; 84436; 84443; 84484; 84550; 85007; 85025; 85027; 85045; 85610; 85730; 86038; 86701; 86703; 86880; 87045; 87081; 87427; 87493; 93005; 93306; 93886; 96361; 96365; 96375; 97163; G0378; J2001; J3480; J3490

== ENCOUNTER 2022-10-02 16:45 | Inpatient (IN) | payer MEDICAID ==
[~2022-10-02] VITALS: Ht 170.2 cm; Wt 62.4 kg
[~2022-10-02 16:45] MED LIST changes: +CALC10TA PO; +FERR-7 PO; +POTA-220 PO
[2022-10-02 17:10] VITALS: PULSE 89; RESP 19; O2SAT 99
[2022-10-02] MEDS ORDERED: ACETAMINOPHEN 325 MG TAB PO ONE (17:30)
[2022-10-02] MEDS ORDERED: FOLIC ACID 1 MG, MULTIPLE VITAMIN 10 ML, MAGNESIUM SULF SDV 50% 8 MEQ, THIAMINE INJ 100... INJ SCH ×5 (17:43)
[2022-10-02 17:51] VITALS: PULSE 87; RESP 16; O2SAT 97
[2022-10-02 18:12] LABS: Hematocrit 26.7 % (36.0-46.0); Hemoglobin 8.6 g/dL (12.2-16.2); Mean Corpuscular Hemoglobin 23.4 pg (28.0-32.0); Mean Corpuscular Hgb Conc. 32.2 g/dL (32.0-36.0); Mean Corpuscular Volume 72.8 fL (80.0-100.0); Red Blood Cells 3.67 10^6/uL (4.0-5.20)
[2022-10-02 18:23] LABS: Red Cell Distribution Width 21.1 % (11.8-14.3)
[2022-10-02 18:24] LABS: Anion Gap 35 (5-15); Calcium 7.7 mg/dL (8.5-10.1); Carbon Dioxide 14 mmol/L (21-32); Chloride 69 mmol/L (98-107); Glucose 109 mg/dL (74-106); Lipase 165 U/L (73-393); Magnesium 2.3 mg/dL (1.6-2.6)
[2022-10-02 18:30] LABS: Alanine Aminotransferase 22 U/L (13-56); Albumin 3.5 g/dL (3.4-5.0); Alkaline Phosphatase 152 U/L (45-117); Aspartate Aminotransferase 30 U/L (15-37); BUN/Creatinine Ratio 19.1 (10.0-20.0); Bilirubin, Total 0.6 mg/dL (0.2-1.0); Blood Alcohol < 3.0 mg/dL (<10); GFR African American 7 mL/min; GFR Non-African American 6 mL/min
[2022-10-02 18:31] LABS: White Blood Cell 1.7 10^3/uL (4.4-10.8)
[2022-10-02 18:32] LABS: Basophils % (manual) 0 (0.0-2.0); Blast Cells 0; Eosinophils % (manual) 0 (0-7); Promyelocytes % 0; Reactive Lymphocytes 0
[2022-10-02 18:40] LABS: Blood Urea Nitrogen 148 mg/dL (7-18); Potassium 2.8 mmol/L (3.5-5.1); Sodium 118 mmol/L (136-145)
[2022-10-02 18:59] LABS: INR 1.04 (0.9-1.15); Partial Thromboplastin Time 26.2 SEC (24.5-34.5); Prothrombin Time 10.9 sec (9.3-11.8)
[2022-10-02 19:04] LABS: Band Neutrophils % (manual) 26; Lymphocytes % (manual) 26 (10.0-50.0); Metamyelocytes % 10; Monocytes % (manual) 13 (0-12); Myelocytes % 5; Platelet Estimate Adequate
[2022-10-02 19:05] LABS: Anisocytosis Slight; Hypochromia Slight
[2022-10-02] MEDS ORDERED: POTASSIUM EFFERVESENT TAB 25 MEQ GT ONE (19:15)
[2022-10-02] MEDS ORDERED: SODIUM CHLORIDE 0.9% 2,000 ML IV ONE (19:15)
[2022-10-02 20:00] VITALS: PULSE 70; RESP 14; O2SAT 100
[2022-10-02] MEDS: CALCIUM GLUC 1,000mg/50ml-NS 50 ML IV SCH ×2 (20:49→21:23)
[2022-10-02] MEDS ORDERED: ACETAMINOPHEN 325 MG TAB PO PRN (22:00)
[2022-10-02] MEDS ORDERED: ONDANSETRON HCL 4 MG/2 ML VIAL IV PRN (22:00)
[2022-10-02] MEDS ORDERED: MORPHINE SULFATE INJ 2 MG/ml SYRG IV PRN (22:45)
[2022-10-02] MEDS ORDERED: NITROGLYCERIN 0.4 MG SL TAB SL PRN (22:45)
[2022-10-02] MEDS: POTASSIUM CHL 20MEQ/100ML 100 ML IV SCH (22:51)
[2022-10-02] MEDS: SODIUM CHLOR 0.9% PF (SALINE LOCK) 10ML VIAL/SYR IV SCH (22:51)
[2022-10-02] MEDS: HEPARIN SODIUM (PORCINE) 5000 UNITS/ML 1ML VIAL SC SCH (22:57)
[2022-10-03] MEDS: POTASSIUM CHL 20MEQ/100ML 100 ML IV SCH (00:46)
[2022-10-03] MEDS: HYDROcodone-ACET 5/325MG TAB PO PRN ×2 (01:04→21:23)
[2022-10-03] MEDS: SODIUM CHLOR 0.9% PF (SALINE LOCK) 10ML VIAL/SYR IV SCH ×3 (06:04→21:06)
[2022-10-03 06:14] LABS: Hematocrit 22.8 % (36.0-46.0); Hemoglobin 7.3 g/dL (12.2-16.2); Mean Corpuscular Hemoglobin 23.6 pg (28.0-32.0); Mean Corpuscular Hgb Conc. 31.9 g/dL (32.0-36.0); Mean Corpuscular Volume 74.1 fL (80.0-100.0); Red Blood Cells 3.08 10^6/uL (4.0-5.20)
[2022-10-03 06:57] LABS: Albumin 2.8 g/dL (3.4-5.0); Calcium 7.4 mg/dL (8.5-10.1)
[2022-10-03 07:00] LABS: BUN/Creatinine Ratio 20.9 (10.0-20.0); Bilirubin, Total 0.6 mg/dL (0.2-1.0); Total Protein 7.4 g/dL (6.4-8.2)
[2022-10-03 07:12] LABS: Red Cell Distribution Width 20.9 % (11.8-14.3); White Blood Cell 1.9 10^3/uL (4.4-10.8)
[2022-10-03 07:14] LABS: Basophils % (manual) 0 (0.0-2.0); Blast Cells 0; Eosinophils % (manual) 0 (0-7); Magnesium 0.4 mg/dL (1.6-2.6); Myelocytes % 0; Potassium 3.1 mmol/L (3.5-5.1); Promyelocytes % 0; Reactive Lymphocytes 0
[2022-10-03] MEDS ORDERED: SODIUM BICARBONATE 8.4 % INJ 50ML VIAL IV ONE (07:45)
[2022-10-03] MEDS ORDERED: MAGNESIUM SULFATE 1GM/100ML 200 ML IV ONE (07:56)
[2022-10-03 08:00] VITALS: PULSE 62; RESP 11; O2SAT 100
[2022-10-03 08:05] LABS: Base Excess -13.2 mmol/L (-2.0-2.0)
[2022-10-03] MEDS ORDERED: SODIUM BICARBONATE 50ML VIAL 100 ML in SOD CHL 0.45% 1,000 ML IV SCH (08:30)
[2022-10-03 08:42] LABS: Urine Bacteria FEW /hpf (None Seen); Urine Blood 1+ /uL (Negative); Urine Clarity HAZY (Clear); Urine Color Yellow (Yellow); Urine Protein, UAD 1+ (Negative); Urine Specific Gravity 1.012 (1.001-1.035); Urine WBC 54 /hpf (0 - 5); Urine pH 5.5 (5.0-8.0)
[2022-10-03 09:03] LABS: Alcohol, Urine < 3.0 mg/dL (0-10); Amphetamine Screen, Urine NEGATIVE (NEGATIVE); Barbiturate Scree,Urine NEGATIVE (NEGATIVE); Benzodiazephine Screen, Urine NEGATIVE (NEGATIVE); Cannabinoid Screen, Urine NEGATIVE (NEGATIVE); Cocaine Screen, Urine NEGATIVE (NEGATIVE); Opiate Scree,Urine NEGATIVE (NEGATIVE); Phencyclidine Screen, Urine NEGATIVE (NEGATIVE)
[2022-10-03] MEDS ORDERED: POTASSIUM EFFERVESENT TAB 25 MEQ PO ONE (09:15)
[2022-10-03] MEDS: MAGNESIUM SULFATE 1GM/100ML 100 ML IV SCH ×2 (09:15→10:20)
[2022-10-03 09:16] LABS: Creatinine, Urine 86 mg/dL (30.0-125.0); Sodium Urine 38 mmol/L (40-220)
[2022-10-03 09:18] LABS: Protein, Urine 99.9 mg/dL (0.0-11.9); Urine Protein/Creatinine Ratio 1.19
[2022-10-03] MEDS: HEPARIN SODIUM (PORCINE) 5000 UNITS/ML 1ML VIAL SC SCH ×2 (09:30→21:07)
[2022-10-03] MEDS: SODIUM BICARBONATE 50ML VIAL 100 ML in SOD CHL 0.45% 1,000 ML IV SCH ×3 (09:34→23:52)
[2022-10-03] MEDS ORDERED: ASPirin 81 mg TAB PO SCH ×3 (10:00)
[2022-10-03 11:37] LABS: Band Neutrophils % (manual) 10; Lymphocytes % (manual) 18 (10.0-50.0); Metamyelocytes % 3; Monocytes % (manual) 15 (0-12)
[2022-10-03 11:38] LABS: Anisocytosis Slight; Hypochromia Moderate; Platelet Estimate Adequate
[2022-10-03] MEDS: FOLIC ACID 1 MG, MULTIPLE VITAMIN 10 ML, THIAMINE INJ 100 MG in SODIUM CHLORIDE 0.9% 1,... INJ SCH (12:00)
[2022-10-03] MEDS ORDERED: LOPERAMIDE HCL 2 MG CAP/TAB PO ONE (14:00)
[2022-10-03 18:22] VITALS: PULSE 74; RESP 18
[2022-10-03 20:00] VITALS: PULSE 74; RESP 16; O2SAT 96
[2022-10-03] MEDS: LOPERAMIDE HCL 2 MG CAP/TAB PO PRN (21:23)
[2022-10-03 22:00] VITALS: BP 110/63; PULSE 74; RESP 18; TEMP 97.6; O2SAT 96
[2022-10-04] VITALS (15 sets, daily range): BP systolic 90–115; BP diastolic 47–76; PULSE 76–90; RESP 14–20; TEMP 36.4; O2SAT 90–100
[2022-10-04] MEDS: SODIUM CHLOR 0.9% PF (SALINE LOCK) 10ML VIAL/SYR IV SCH ×3 (06:29→22:06)
[2022-10-04] MEDS: SODIUM BICARBONATE 50ML VIAL 100 ML in SOD CHL 0.45% 1,000 ML IV SCH ×3 (06:30→21:55)
[2022-10-04] MEDS: LOPERAMIDE HCL 2 MG CAP/TAB PO PRN (07:49)
[2022-10-04] MEDS: HYDROcodone-ACET 5/325MG TAB PO PRN (07:50)
[2022-10-04 08:06] LABS: Complement C3 103 mg/dL (82-167)
[2022-10-04] MEDS: HEPARIN SODIUM (PORCINE) 5000 UNITS/ML 1ML VIAL SC SCH ×2 (09:48→22:00)
[2022-10-04] MEDS: MAGNESIUM SULFATE 1GM/100ML 100 ML IV SCH ×2 (12:08→13:20)
[2022-10-04] MEDS: SEVELAMER 800 MG TAB PO SCH ×2 (12:08→19:07)
[2022-10-04 12:20] LABS: Mean Corpuscular Hemoglobin 23.3 pg (28.0-32.0); Mean Corpuscular Hgb Conc. 32.3 g/dL (32.0-36.0); Mean Corpuscular Volume 72.4 fL (80.0-100.0); Red Blood Cells 2.62 10^6/uL (4.0-5.20)
[2022-10-04 12:21] LABS: Red Cell Distribution Width 20.2 % (11.8-14.3)
[2022-10-04 12:23] LABS: Hemoglobin 6.1 g/dL (12.2-16.2); White Blood Cell 1.6 10^3/uL (4.4-10.8)
[2022-10-04 12:26] LABS: Basophils % (manual) 0 (0.0-2.0); Blast Cells 0; Eosinophils % (manual) 0 (0-7); Metamyelocytes % 0; Myelocytes % 0; Promyelocytes % 0; Reactive Lymphocytes 0
[2022-10-04] MEDS ORDERED: FUROSEMIDE 40 MG/4 ML VIAL IV ONE (12:45)
[2022-10-04 12:51] LABS: Albumin 2.4 g/dL (3.4-5.0); Calcium 7.9 mg/dL (8.5-10.1)
[2022-10-04 12:55] LABS: BUN/Creatinine Ratio 26.3 (10.0-20.0); Bilirubin, Total 0.4 mg/dL (0.2-1.0); Total Protein 6.4 g/dL (6.4-8.2)
[2022-10-04] MEDS ORDERED: POTASSIUM EFFERVESENT TAB 25 MEQ PO ONE ×2 (13:00→17:15)
[2022-10-04] MEDS: POTASSIUM CHL 20MEQ/100ML 100 ML IV SCH ×2 (13:21→17:32)
[2022-10-04 13:48] LABS: Band Neutrophils % (manual) 12; Lymphocytes % (manual) 26 (10.0-50.0); Monocytes % (manual) 7 (0-12)
[2022-10-04 13:49] LABS: Anisocytosis Slight; Hypochromia Moderate; Platelet Estimate Decreased
[2022-10-04] MEDS ORDERED: METHOCARBAMOL 500 MG TAB PO PRN (14:00)
[2022-10-04] MEDS: FOLIC ACID 1 MG, MULTIPLE VITAMIN 10 ML, THIAMINE INJ 100 MG in SODIUM CHLORIDE 0.9% 1,... INJ SCH (19:06)
[2022-10-05] VITALS (10 sets, daily range): BP systolic 100–112; BP diastolic 58–76; PULSE 69–88; RESP 14–20; TEMP 97.6–99.2; O2SAT 98–100
[2022-10-05 06:07] LABS: Hematocrit 33.5 % (36.0-46.0); Hemoglobin 11.2 g/dL (12.2-16.2); Mean Corpuscular Hemoglobin 26.3 pg (28.0-32.0); Mean Corpuscular Hgb Conc. 33.3 g/dL (32.0-36.0); Mean Corpuscular Volume 78.8 fL (80.0-100.0); Red Blood Cells 4.25 10^6/uL (4.0-5.20); White Blood Cell 3.2 10^3/uL (4.4-10.8)
[2022-10-05] MEDS: SODIUM CHLOR 0.9% PF (SALINE LOCK) 10ML VIAL/SYR IV SCH ×3 (06:07→21:11)
[2022-10-05] MEDS: SODIUM BICARBONATE 50ML VIAL 100 ML in SOD CHL 0.45% 1,000 ML IV SCH ×3 (06:08→19:55)
[2022-10-05 06:09] LABS: Red Cell Distribution Width 20.5 % (11.8-14.3)
[2022-10-05 06:11] LABS: Eosinophils % (manual) 0 (0-7)
[2022-10-05 06:12] LABS: Basophils % (manual) 0 (0.0-2.0); Blast Cells 0; Promyelocytes % 0; Reactive Lymphocytes 0
[2022-10-05 06:41] LABS: Albumin 2.2 g/dL (3.4-5.0); BUN/Creatinine Ratio 30.3 (10.0-20.0); Bilirubin, Total 0.9 mg/dL (0.2-1.0); Calcium 7.9 mg/dL (8.5-10.1); Magnesium 3.6 mg/dL (1.6-2.6); Phosphorus 3.3 mg/dL (2.5-4.90); Total Protein 6.1 g/dL (6.4-8.2)
[2022-10-05 06:49] LABS: Potassium 2.5 mmol/L (3.5-5.1)
[2022-10-05 08:11] LABS: Anisocytosis Slight; Band Neutrophils % (manual) 11; Metamyelocytes % 4; Myelocytes % 3; Platelet Estimate Decreased; Target Cell FEW
[2022-10-05 08:12] LABS: Lymphocytes % (manual) 18 (10.0-50.0); Monocytes % (manual) 20 (0-12)
[2022-10-05] MEDS: SEVELAMER 800 MG TAB PO SCH ×3 (08:38→19:05)
[2022-10-05] MEDS: cefTRIAXone 1GM/50ML D5W 50 ML IV SCH (08:43)
[2022-10-05] MEDS: HEPARIN SODIUM (PORCINE) 5000 UNITS/ML 1ML VIAL SC SCH ×2 (09:04→21:12)
[2022-10-05 10:30] LABS: Hepatitis C Antibody Negative (Negative)
[2022-10-05 10:31] LABS: Hepatitis B Surface Antigen Negative (Negative)
[2022-10-05] MEDS: POTASSIUM CHL 20MEQ/100ML 100 ML IV SCH ×2 (10:59→14:26)
[2022-10-05] MEDS: POTASSIUM EFFERVESENT TAB 25 MEQ PO SCH ×3 (11:03→19:04)
[2022-10-05] MEDS ORDERED: LIDOCAINE 2%HCL (LOCAL ANESTH.) INJ 10ml MDV ONE (11:17)
[2022-10-05] MEDS ORDERED: fentaNYL CITRATE 100 MCG/2 ML VL IV ONE (12:00)
[2022-10-05] MEDS ORDERED: MIDAZOLAM HCL 2MG/2ML 2ml VIAL (1mg/ml) IV ONE (12:00)
[2022-10-05] MEDS: ALBUMIN 25% 100 ML IV SCH ×2 (17:12→21:01)
[2022-10-05] MEDS: Pro-Stat SF 30ml Vanilla PO SCH (18:00)
[2022-10-05] MEDS: Nepro With Carbsteady ButterPecan 8oz Carton PO SCH (19:04)
[2022-10-05] MEDS: FOLIC ACID 1 MG, MULTIPLE VITAMIN 10 ML, THIAMINE INJ 100 MG in SODIUM CHLORIDE 0.9% 1,... INJ SCH (21:02)
[2022-10-06] VITALS (7 sets, daily range): BP systolic 97–131; BP diastolic 65–78; PULSE 60–94; RESP 14–20; TEMP 97.2–98.7; O2SAT 98–100
[2022-10-06] MEDS: ALBUMIN 25% 100 ML IV SCH (02:57)
[2022-10-06] MEDS: SODIUM BICARBONATE 50ML VIAL 100 ML in SOD CHL 0.45% 1,000 ML IV SCH (04:47)
[2022-10-06 05:07] LABS: Hemoglobin 7.3 g/dL (12.2-16.2); Mean Corpuscular Volume 77.2 fL (80.0-100.0); White Blood Cell 2.9 10^3/uL (4.4-10.8)
[2022-10-06 05:10] LABS: Hematocrit 21.4 % (36.0-46.0); Mean Corpuscular Hemoglobin 26.2 pg (28.0-32.0); Mean Corpuscular Hgb Conc. 33.9 g/dL (32.0-36.0); Red Blood Cells 2.78 10^6/uL (4.0-5.20)
[2022-10-06 05:35] LABS: Calcium 8.1 mg/dL (8.5-10.1)
[2022-10-06 05:37] LABS: Red Cell Distribution Width 20.2 % (11.8-14.3)
[2022-10-06 05:39] LABS: Basophils % (manual) 0 (0.0-2.0); Blast Cells 0; Promyelocytes % 0; Reactive Lymphocytes 0
[2022-10-06 05:41] LABS: Albumin 3.1 g/dL (3.4-5.0); BUN/Creatinine Ratio 36.1 (10.0-20.0); Bilirubin, Total 0.8 mg/dL (0.2-1.0); Total Protein 5.7 g/dL (6.4-8.2)
[2022-10-06] MEDS: SODIUM CHLOR 0.9% PF (SALINE LOCK) 10ML VIAL/SYR IV SCH ×3 (06:25→21:33)
[2022-10-06] MEDS: Pro-Stat SF 30ml Vanilla PO SCH ×2 (08:00→18:23)
[2022-10-06] MEDS: Nepro With Carbsteady ButterPecan 8oz Carton PO SCH ×3 (08:00→18:23)
[2022-10-06 08:25] LABS: Anisocytosis Slight; Band Neutrophils % (manual) 15; Eosinophils % (manual) 2 (0-7); Lymphocytes % (manual) 7 (10.0-50.0); Metamyelocytes % 2; Monocytes % (manual) 9 (0-12); Myelocytes % 1; Ovalocytes FEW
[2022-10-06 08:26] LABS: Giant Platelets Few; Large Platelets FEW; Platelet Estimate Decreased
[2022-10-06] MEDS ORDERED: POTASSIUM EFFERVESENT TAB 25 MEQ PO ONE (09:15)
[2022-10-06] MEDS: HEPARIN SODIUM (PORCINE) 5000 UNITS/ML 1ML VIAL SC SCH ×2 (10:00→21:33)
[2022-10-06] MEDS: cefTRIAXone 1GM/50ML D5W 50 ML IV SCH (10:39)
[2022-10-06] MEDS: SODIUM CHLORIDE 0.9% 1,000 ML IV SCH ×2 (10:40→19:15)
[2022-10-06] MEDS: MEROPENEM 1GM IVPB 100 ML IV SCH (14:21)
[2022-10-06] MEDS: FOLIC ACID 1 MG, MULTIPLE VITAMIN 10 ML, THIAMINE INJ 100 MG in SODIUM CHLORIDE 0.9% 1,... INJ SCH (17:07)
[2022-10-06] MEDS: DOCUSATE SOD 100 MG CAP PO PRN (22:01)
[2022-10-07] VITALS (17 sets, daily range): BP systolic 100–133; BP diastolic 62–86; PULSE 65–97; RESP 12–20; TEMP 97.8–98.8; O2SAT 94–100
[2022-10-07] MEDS: MEROPENEM 1GM IVPB 100 ML IV SCH (01:53)
[2022-10-07] MEDS: SODIUM CHLORIDE 0.9% 1,000 ML IV SCH ×2 (05:15→15:17)
[2022-10-07] MEDS: SODIUM CHLOR 0.9% PF (SALINE LOCK) 10ML VIAL/SYR IV SCH ×3 (05:30→22:24)
[2022-10-07 05:57] LABS: Mean Corpuscular Volume 78.7 fL (80.0-100.0)
[2022-10-07 05:58] LABS: Hematocrit 26.3 % (36.0-46.0); Hemoglobin 8.9 g/dL (12.2-16.2); Mean Corpuscular Hemoglobin 26.6 pg (28.0-32.0); Mean Corpuscular Hgb Conc. 33.8 g/dL (32.0-36.0); Red Blood Cells 3.34 10^6/uL (4.0-5.20); White Blood Cell 4.6 10^3/uL (4.4-10.8)
[2022-10-07 06:00] LABS: Red Cell Distribution Width 20.2 % (11.8-14.3)
[2022-10-07 06:01] LABS: Basophils % (manual) 0 (0.0-2.0); Blast Cells 0; Eosinophils % (manual) 0 (0-7); Metamyelocytes % 0; Myelocytes % 0; Promyelocytes % 0; Reactive Lymphocytes 0
[2022-10-07 06:02] LABS: Albumin 2.6 g/dL (3.4-5.0); Calcium 7.9 mg/dL (8.5-10.1); Magnesium 1.8 mg/dL (1.6-2.6)
[2022-10-07 06:05] LABS: BUN/Creatinine Ratio 39.4 (10.0-20.0); Bilirubin, Total 0.3 mg/dL (0.2-1.0); Total Protein 5.4 g/dL (6.4-8.2)
[2022-10-07] MEDS: HEPARIN SODIUM (PORCINE) 5000 UNITS/ML 1ML VIAL SC SCH ×2 (07:25→22:00)
[2022-10-07] MEDS: Nepro With Carbsteady ButterPecan 8oz Carton PO SCH ×3 (07:32→18:11)
[2022-10-07] MEDS: Pro-Stat SF 30ml Vanilla PO SCH ×2 (07:32→18:12)
[2022-10-07 08:24] LABS: Anisocytosis Slight; Band Neutrophils % (manual) 6; Lymphocytes % (manual) 15 (10.0-50.0); Monocytes % (manual) 8 (0-12)
[2022-10-07 08:25] LABS: Platelet Estimate Decreased
[2022-10-07] MEDS ORDERED: POTASSIUM CHL 20MEQ/100ML 100 ML IV SCH (09:00)
[2022-10-07] MEDS ORDERED: fentaNYL CITRATE 100 MCG/2 ML VL IV ONE (12:00)
[2022-10-07] MEDS ORDERED: LIDOCAINE VISCOUS 2% 15ML UD MT ONE (12:00)
[2022-10-07] MEDS ORDERED: MIDAZOLAM HCL 2MG/2ML 2ml VIAL (1mg/ml) IV ONE (12:00)
[2022-10-07] MEDS: metroNIDAZOLE 500MG/100ML 100 ML IV SCH ×2 (14:48→22:30)
[2022-10-07] MEDS: POTASSIUM CHL 20MEQ/100ML 100 ML IV SCH ×2 (16:54→19:44)
[2022-10-07] MEDS ORDERED: POTASSIUM EFFERVESENT TAB 25 MEQ PO ONE (19:45)
[2022-10-07] MEDS: FOLIC ACID 1 MG, MULTIPLE VITAMIN 10 ML, THIAMINE INJ 100 MG in SODIUM CHLORIDE 0.9% 1,... INJ SCH (19:53)
[2022-10-08] VITALS (7 sets, daily range): BP systolic 129–135; BP diastolic 82–90; PULSE 85–96; RESP 16–18; TEMP 97.4–98.6; O2SAT 98–100
[2022-10-08] MEDS: SODIUM CHLORIDE 0.9% 1,000 ML IV SCH ×3 (01:15→21:15)
[2022-10-08] MEDS: DOCUSATE SOD 100 MG CAP PO PRN (05:04)
[2022-10-08 05:16] LABS: Hemoglobin 9.4 g/dL (12.2-16.2); White Blood Cell 4.9 10^3/uL (4.4-10.8)
[2022-10-08 05:18] LABS: Hematocrit 28.9 % (36.0-46.0); Mean Corpuscular Hemoglobin 25.7 pg (28.0-32.0); Mean Corpuscular Hgb Conc. 32.5 g/dL (32.0-36.0); Mean Corpuscular Volume 79.1 fL (80.0-100.0); Red Blood Cells 3.65 10^6/uL (4.0-5.20)
[2022-10-08 05:26] LABS: Albumin 2.5 g/dL (3.4-5.0); Potassium 3.3 mmol/L (3.5-5.1)
[2022-10-08 05:30] LABS: BUN/Creatinine Ratio 36.5 (10.0-20.0); Bilirubin, Total 0.4 mg/dL (0.2-1.0); Red Cell Distribution Width 20.7 % (11.8-14.3); Total Protein 5.7 g/dL (6.4-8.2)
[2022-10-08 05:32] LABS: Basophils % (manual) 0 (0.0-2.0); Blast Cells 0; Eosinophils % (manual) 0 (0-7); Promyelocytes % 0; Reactive Lymphocytes 0
[2022-10-08] MEDS: SODIUM CHLOR 0.9% PF (SALINE LOCK) 10ML VIAL/SYR IV SCH ×3 (05:51→21:18)
[2022-10-08] MEDS: metroNIDAZOLE 500MG/100ML 100 ML IV SCH ×3 (05:51→21:17)
[2022-10-08 08:24] LABS: Band Neutrophils % (manual) 10; Lymphocytes % (manual) 4 (10.0-50.0); Metamyelocytes % 1; Monocytes % (manual) 8 (0-12); Myelocytes % 1
[2022-10-08] MEDS: Nepro With Carbsteady ButterPecan 8oz Carton PO SCH ×2 (08:49→12:35)
[2022-10-08] MEDS: Pro-Stat SF 30ml Vanilla PO SCH (08:50)
[2022-10-08] MEDS: cefTRIAXone 1GM/50ML D5W 50 ML IV SCH (08:50)
[2022-10-08 08:56] LABS: Anisocytosis Slight; Platelet Estimate Decreased
[2022-10-08] MEDS: HEPARIN SODIUM (PORCINE) 5000 UNITS/ML 1ML VIAL SC SCH ×2 (10:00→21:18)
[2022-10-08] MEDS ORDERED: POTASSIUM EFFERVESENT TAB 25 MEQ PO ONE (11:30)
[2022-10-08] MEDS: POTASSIUM CHL 20MEQ/100ML 100 ML IV SCH ×2 (11:45→13:26)
[2022-10-08] MEDS: FOLIC ACID 1 MG, MULTIPLE VITAMIN 10 ML, THIAMINE INJ 100 MG in SODIUM CHLORIDE 0.9% 1,... INJ SCH (13:04)
[2022-10-09 05:00] VITALS: BP 141/96; PULSE 93; RESP 16; TEMP 98.3; O2SAT 100
[2022-10-09] MEDS: SODIUM CHLOR 0.9% PF (SALINE LOCK) 10ML VIAL/SYR IV SCH ×3 (05:09→22:07)
[2022-10-09] MEDS: metroNIDAZOLE 500MG/100ML 100 ML IV SCH (05:09)
[2022-10-09 06:36] LABS: Potassium 3.4 mmol/L (3.5-5.1)
[2022-10-09 06:45] LABS: Hematocrit 25.9 % (36.0-46.0); Hemoglobin 8.6 g/dL (12.2-16.2); Red Blood Cells 3.28 10^6/uL (4.0-5.20)
[2022-10-09 06:48] LABS: Albumin 2.4 g/dL (3.4-5.0); BUN/Creatinine Ratio 34.9 (10.0-20.0); Bilirubin, Total 0.2 mg/dL (0.2-1.0); Calcium 7.5 mg/dL (8.5-10.1); Mean Corpuscular Hemoglobin 26.1 pg (28.0-32.0); Total Protein 5.1 g/dL (6.4-8.2); White Blood Cell 4.5 10^3/uL (4.4-10.8)
[2022-10-09] MEDS: Nepro With Carbsteady ButterPecan 8oz Carton PO SCH ×4 (07:06→18:11)
[2022-10-09] MEDS: Pro-Stat SF 30ml Vanilla PO SCH ×3 (07:07→18:11)
[2022-10-09 07:15] LABS: Red Cell Distribution Width 20.3 % (11.8-14.3)
[2022-10-09 07:16] LABS: Basophils % (manual) 0 (0.0-2.0); Blast Cells 0; Metamyelocytes % 0; Myelocytes % 0; Promyelocytes % 0; Reactive Lymphocytes 0
[2022-10-09 08:00] VITALS: BP 134/90; PULSE 103; RESP 14; TEMP 98.1; O2SAT 100
[2022-10-09] MEDS: SODIUM CHLORIDE 0.9% 1,000 ML IV SCH (09:04)
[2022-10-09] MEDS: cefTRIAXone 1GM/50ML D5W 50 ML IV SCH (09:05)
[2022-10-09] MEDS: HEPARIN SODIUM (PORCINE) 5000 UNITS/ML 1ML VIAL SC SCH ×2 (10:00→22:00)
[2022-10-09] MEDS ORDERED: POTASSIUM EFFERVESENT TAB 25 MEQ PO ONE (10:45)
[2022-10-09] MEDS: SOD CHL 0.45% 1,000 ML IV SCH (10:45)
[2022-10-09 12:00] VITALS: BP 117/67; PULSE 106; RESP 16; TEMP 98.9; O2SAT 100
[2022-10-09 12:22] LABS: Anisocytosis Slight; Band Neutrophils % (manual) 6; Eosinophils % (manual) 12 (0-7); Lymphocytes % (manual) 14 (10.0-50.0); Monocytes % (manual) 2 (0-12); Platelet Estimate Decreased
[2022-10-09] MEDS: MAGNESIUM OXIDE 400 MG TAB PO SCH (12:31)
[2022-10-09] MEDS: FOLIC ACID 1 MG, MULTIPLE VITAMIN 10 ML, THIAMINE INJ 100 MG in SODIUM CHLORIDE 0.9% 1,... INJ SCH (12:32)
[2022-10-09] MEDS: ACYCLOVIR SOD 50MG/ML 800 MG in SODIUM CHL 0.9% 250 ML IV SCH ×2 (14:14→22:07)
[2022-10-09 16:00] VITALS: BP 127/84; PULSE 107; RESP 18; TEMP 98.4; O2SAT 100
[2022-10-09 19:55] VITALS: PULSE 109; PULSE 113; RESP 20; O2SAT 99
[2022-10-09 22:00] VITALS: BP 139/78; PULSE 113; RESP 18; TEMP 98.7; O2SAT 100
[2022-10-10] MEDS: SOD CHL 0.45% 1,000 ML IV SCH (01:41)
[2022-10-10 05:00] VITALS: BP 128/74; PULSE 114; RESP 18; TEMP 99.1; O2SAT 100
[2022-10-10] MEDS: SODIUM CHLOR 0.9% PF (SALINE LOCK) 10ML VIAL/SYR IV SCH (06:09)
[2022-10-10] MEDS: ACYCLOVIR SOD 50MG/ML 800 MG in SODIUM CHL 0.9% 250 ML IV SCH (06:10)
[2022-10-10 06:15] LABS: Hemoglobin 8.5 g/dL (12.2-16.2)
[2022-10-10 06:18] LABS: Hematocrit 25.4 % (36.0-46.0); Mean Corpuscular Hemoglobin 26.2 pg (28.0-32.0); Mean Corpuscular Hgb Conc. 33.4 g/dL (32.0-36.0); Mean Corpuscular Volume 78.5 fL (80.0-100.0); Red Blood Cells 3.24 10^6/uL (4.0-5.20); White Blood Cell 5.4 10^3/uL (4.4-10.8)
[2022-10-10 06:29] LABS: Potassium 3.4 mmol/L (3.5-5.1)
[2022-10-10 06:36] LABS: Albumin 2.1 g/dL (3.4-5.0); Bilirubin, Total 0.2 mg/dL (0.2-1.0); Calcium 7.3 mg/dL (8.5-10.1); Magnesium 1.1 mg/dL (1.6-2.6); Total Protein 4.8 g/dL (6.4-8.2)
[2022-10-10 06:51] LABS: Basophils % (manual) 0 (0.0-2.0); Blast Cells 0; Myelocytes % 0; Promyelocytes % 0; Reactive Lymphocytes 0; Red Cell Distribution Width 21.1 % (11.8-14.3)
[2022-10-10 07:02] VITALS: PULSE 107
[2022-10-10] MEDS: Nepro With Carbsteady ButterPecan 8oz Carton PO SCH (07:47)
[2022-10-10] MEDS: Pro-Stat SF 30ml Vanilla PO SCH (07:47)
[2022-10-10 08:00] VITALS: BP 110/63; PULSE 109; RESP 16; TEMP 98.3; O2SAT 99
[2022-10-10] MEDS ORDERED: POTASSIUM EFFERVESENT TAB 25 MEQ PO ONE (08:30)
[2022-10-10] MEDS ORDERED: VALA1TAB34 PO (09:11)
[2022-10-10] MEDS: HEPARIN SODIUM (PORCINE) 5000 UNITS/ML 1ML VIAL SC SCH (10:00)
[2022-10-10] MEDS ORDERED: METOPROLOL SUCCINATE XL 50 MG TAB PO SCH (10:00)
[2022-10-10 10:59] LABS: Band Neutrophils % (manual) 15; Eosinophils % (manual) 5 (0-7); Lymphocytes % (manual) 11 (10.0-50.0); Metamyelocytes % 1; Monocytes % (manual) 14 (0-12)
[2022-10-10 11:01] LABS: Anisocytosis Slight; Macrocytosis Slight; Platelet Estimate Decreased
[2022-10-10] MEDS: MAGNESIUM OXIDE 400 MG TAB PO SCH (11:02)
[2022-10-10 11:42] VITALS: BP 110/63; PULSE 109; RESP 16; TEMP 98.3; O2SAT 99
[2022-10-10 12:00] VITALS: BP 123/85; PULSE 101; RESP 16; TEMP 98.1; O2SAT 96
[2022-10-12 12:08] LABS: Hepatitis A Ab IgM Negative
[2022-10-12 12:09] LABS: Hepatitis B Core IgM Negative; Hepatitis B Surface Antigen Negative (Negative)
[2022-10-12 12:12] LABS: Hepatitis C Antibody Reactive (Negative)
== END 2022-10-10 13:17 | disposition home or self-care (01) | DRG 892 ==
LOC: ER 16:45 → TELE 22:38 → TELE-CENTR 10-03 18:06
PROVIDERS: ADMIT Nurse Practitioner Acute Care; ATTEND Nurse Practitioner Acute Care
PROC: 30233N1 Transfusion of Nonautologous Red Blood Cells into Peripheral Vein, Percutaneous Approach (ICD-10-PCS; principal; 2022-10-04)
PROC: 07DR3ZX Extraction of Iliac Bone Marrow, Percutaneous Approach, Diagnostic (ICD-10-PCS; 2022-10-05)
PROC: B24BZZ4 Ultrasonography of Heart with Aorta, Transesophageal (ICD-10-PCS; 2022-10-07)
DX: A41.9 Sepsis, unspecified organism (principal); B20 Human immunodeficiency virus [HIV] disease; R57.1 Hypovolemic shock; N17.0 Acute kidney failure with tubular necrosis; E43 Unspecified severe protein-calorie malnutrition; I21.A1 Myocardial infarction type 2; R64 Cachexia; E87.20 Acidosis, unspecified; E83.51 Hypocalcemia; E86.0 Dehydration; E87.8 Other disorders of electrolyte and fluid balance, not elsewhere classified; E87.1 Hypo-osmolality and hyponatremia; I13.0 Hypertensive heart and chronic kidney disease with heart failure and stage 1 through stage 4 chronic kidney disease, or unspecified chronic kidney disease; I50.32 Chronic diastolic (congestive) heart failure; E83.42 Hypomagnesemia; E87.6 Hypokalemia; I34.0 Nonrheumatic mitral (valve) insufficiency; K52.9 Noninfective gastroenteritis and colitis, unspecified; I25.10 Atherosclerotic heart disease of native coronary artery without angina pectoris; I48.0 Paroxysmal atrial fibrillation; N18.9 Chronic kidney disease, unspecified; N39.0 Urinary tract infection, site not specified; B96.20 Unspecified Escherichia coli [E. coli] as the cause of diseases classified elsewhere; I25.2 Old myocardial infarction; Z98.51 Tubal ligation status; Z87.891 Personal history of nicotine dependence; Z80.3 Family history of malignant neoplasm of breast; Z82.3 Family history of stroke; Z82.49 Family history of ischemic heart disease and other diseases of the circulatory system; Z91.199 Patient's noncompliance with other medical treatment and regimen due to unspecified reason; R55 Syncope and collapse; Z68.1 Body mass index [BMI] 19.9 or less, adult
CPT/HCPCS: 10005; 36415; 36600; 71250; 72192; 74018; 74176; 76775; 77012; 80053; 80074; 80307; 80320; 81001; 82270; 82306; 82570; 82805; 83605; 83615; 83690; 83735; 83880; 83970; 84100; 84156; 84300; 84484; 85007; 85027; 85045; 85048; 85610; 85730; 86160; 86360; 86701; 86703; 86704; 86803; 86850; 86900; 86901; 86920; 87040; 87045; 87077; 87081; 87086; 87088; 87177; 87186; 87340; 87427; 87493; 93005; 93312; 97110; 97116; 97163; 99152; G0378; J0696; J2001; J2185; J2250; J2405; J3480; J3490; P9047

== ENCOUNTER → 2023-10-28 | Outpatient (CLI) | payer MEDICAID ==
[~2023-10-28] MED LIST changes: -AMOX875T4 PO; -CALC10TA PO; -CEPH-510 PO; -LISI10TA34 PO; -POTA-220 PO; -PRED20TA2 PO; -TRIA0.02 TOP; +VALA1TAB34 PO
== END | disposition home or self-care (01) ==
LOC: Rad HDHVI 13:33
PROVIDERS: ATTEND Internal Medicine Cardiovascular Disease
DX: I10 Essential (primary) hypertension (principal)
CPT/HCPCS: 93306

== ENCOUNTER → 2023-11-03 | Outpatient (CLI) | payer MEDICAID ==
[~2023-11-03] VITALS: Ht 170.2 cm; Wt 68.0 kg
[~2023-11-03] MED LIST changes: +ADENOSINE 57 MG in GIVE UN-DILUTED 0 ML IV ONE; +ADENOSINE 90 MG/30 ML INJ IV ONE
== END | disposition home or self-care (01) ==
LOC: Rad HDHVI 09:52
PROVIDERS: ATTEND Internal Medicine Cardiovascular Disease
DX: Z01.810 Encounter for preprocedural cardiovascular examination (principal); I48.91 Unspecified atrial fibrillation; I21.4 Non-ST elevation (NSTEMI) myocardial infarction; R07.89 Other chest pain; R55 Syncope and collapse; I25.2 Old myocardial infarction; N17.8 Other acute kidney failure
CPT/HCPCS: 78452; 93005; 96374; 96375; A9500; J0153

== ENCOUNTER → 2024-01-17 | Outpatient (CLI) | payer MEDICAID ==
[~2024-01-17] MED LIST changes: -ADENOSINE 57 MG in GIVE UN-DILUTED 0 ML IV ONE; -ADENOSINE 90 MG/30 ML INJ IV ONE
== END | disposition home or self-care (01) ==
LOC: Rad HDHVI 16:14
PROVIDERS: ATTEND Internal Medicine Cardiovascular Disease
DX: R00.2 Palpitations (principal)
CPT/HCPCS: 93306

== ENCOUNTER → 2024-02-11 | Outpatient (CLI) | payer MEDICAID ==
--- NOTE | 2024-02-15 13:36 | DVHSR ---
APPROVED REPORT EXAM: LIMITED Two-dimensional and M-mode echocardiogram with Doppler and color Doppler. DIMENSIONS LVDd4.0 (3.8-5.7cm)LA (2D)5.3 (1.9-4.0cm)Aortic Root (2.0-3.7cm) LVDs2.7 (2.5-4.0cm)LA (MM) (1.9-4.0cm)Aortic Cusp Exc (1.5-2.0cm) EF (%) 60.0 (55-70%)Rt. Atrium4.1 (1.9-4.0cm)Asc. Aorta cm IVSd1.9 (0.7-1.1cm)RV (D) (1.8-2.4cm) PWd1.4 (0.7-1.1cm) Mitral Valve MitralMitral Stenosis E/A ratio0.02D MVAcm2 Aortic Valve Aortic ValveAortic Stenosis V11.60m/Roxana Mean GR.7mmHg V21.80m/Roxana Peak GR.14mmHg AI P 1/2 Lduy1842.89ms Conclusion HOCM SEVERE LVH EF >65% AV OUTFLOW GRADIENT WITH SIGNIFICANT IMPROVEMENT LESS THAN 20mmHg
== END | disposition home or self-care (01) ==
LOC: Rad HDHVI 10:12
PROVIDERS: ATTEND Internal Medicine Cardiovascular Disease
DX: I42.1 Obstructive hypertrophic cardiomyopathy (principal); I50.33 Acute on chronic diastolic (congestive) heart failure
CPT/HCPCS: 93306

== ENCOUNTER → 2024-04-07 | Outpatient (CLI) | payer MEDICAID | END | disposition home or self-care (01) | LOC: Rad HDHVI 09:13 | PROVIDERS: ATTEND Internal Medicine Cardiovascular Disease | DX: I11.0 Hypertensive heart disease with heart failure (principal); I50.33 Acute on chronic diastolic (congestive) heart failure | CPT/HCPCS: 93306 ==

== ENCOUNTER → 2024-05-12 | Outpatient (CLI) | payer MEDICAID | END | disposition home or self-care (01) | LOC: Rad HDHVI 07:56 | PROVIDERS: ATTEND Internal Medicine Cardiovascular Disease | DX: I50.33 Acute on chronic diastolic (congestive) heart failure (principal) | CPT/HCPCS: 93306 ==

== ENCOUNTER → 2024-07-03 | Outpatient (CLI) | payer MEDICAID ==
[~2024-07-03] MED LIST changes: +BICT1TAB PO; +CHOL1CAP58 PO; +MAVA5CAP PO
--- NOTE | 2024-07-03 12:17 | DVH ---
XY CHEST TWO VIEWS ROUTINE INDICATION: PRE OP TECHNIQUE: Two views of the chest COMPARISON: CXR2 on DOS: 02/03/22 FINDINGS: LUNGS: No pleural effusion, consolidation, or pneumothorax MEDIASTINUM: Unremarkable BONES: No acute osseous abnormality OTHER: None IMPRESSION: 1. No radiographic evidence of an acute cardiopulmonary process.
== END | disposition home or self-care (01) ==
LOC: Rad HDHVI 10:06
PROVIDERS: ATTEND Internal Medicine Cardiovascular Disease
DX: Z01.818 Encounter for other preprocedural examination (principal)
CPT/HCPCS: 71046

== ENCOUNTER 2024-07-06 06:25 | Day surgery (SDC) | payer MEDICAID ==
[2024-07-03 12:59] LABS: Basophils # (auto) 0 10 ^3/uL (0-0.2); Hemoglobin 12.3 g/dL (12.2-16.2); Nucleated Red Blood Cells % 0.1 %; Platelet Count (auto) 161 10^3/uL (140-450); White Blood Cell 3.7 10^3/uL (4.4-10.8)
[2024-07-03 13:01] LABS: Basophils % (auto) 0.5 % (0.0-2.0); Eosinophils # (auto) 0.2 10 ^3/uL (0-0.8); Eosinophils % (auto) 4.4 % (0.0-7.0); Hematocrit 38.5 % (36.0-46.0); Lymphocytes # (auto) 1.6 10 ^3/uL (0.4-5.4); Lymphocytes % (auto) 42.3 % (10.0-50.0); Mean Corpuscular Hemoglobin 26.5 pg (28.0-32.0); Mean Corpuscular Hgb Conc. 31.9 g/dL (32.0-36.0); Monocytes # (auto) 0.4 10 ^3/uL (0-1.3); Monocytes % (auto) 11.8 % (0.0-12.0); Neutrophils # (auto) 1.5 10 ^3/uL (1.6-8.6); Red Blood Cells 4.63 10^6/uL (4.0-5.20); Red Cell Distribution Width 16.7 % (11.8-14.3)
[2024-07-03 13:15] LABS: INR 0.98 (0.9-1.15); Partial Thromboplastin Time 31.9 SEC (24.5-34.5); Prothrombin Time 10.4 sec (9.3-11.8)
[2024-07-03 13:25] LABS: Chloride 105 mmol/L (98-107); Sodium 140 mmol/L (136-145)
[2024-07-03 13:26] LABS: Anion Gap 7 (5-15); Carbon Dioxide 28 mmol/L (20-31)
[2024-07-03 13:27] LABS: Calcium 10.7 mg/dL (8.7-10.4)
[2024-07-03 13:31] LABS: BUN/Creatinine Ratio 12.8 (10.0-20.0); Blood Urea Nitrogen 14 mg/dL (9-23); Glucose 88 mg/dL (74-106)
[2024-07-06] VITALS (7 sets, daily range): BP systolic 128–151; BP diastolic 60–82; PULSE 74–93; RESP 13–18; O2SAT 99–100
[~2024-07-06] VITALS: Ht 170.2 cm; Wt 64.9 kg
[~2024-07-06 06:25] MED LIST changes: -FERR-7 PO; -METO-6 PO; -VALA1TAB34 PO
[2024-07-06] MEDS ORDERED: LIDOCAINE VISCOUS 2% 15ML UD PO ONE (07:30)
[2024-07-06] MEDS ORDERED: MIDAZOLAM HCL 2MG/2ML 2ml VIAL (1mg/ml) IV ONE (07:30)
[2024-07-06] MEDS ORDERED: fentaNYL CITRATE 100 MCG/2 ML VL IV ONE (07:30)
[2024-07-06] MEDS ORDERED: IOHEXOL 350 MG/ML 100ML IJ ONE (07:55)
[2024-07-06] MEDS ORDERED: HEPARIN IN NS 1000Units/500mL 1,500 ML ONE (07:55)
[2024-07-06] MEDS ORDERED: SODIUM CHL 0.9% 0 ML ONE (08:09)
[2024-07-06] MEDS ORDERED: ANGIOMAX 250 MG VIAL IV ONE (08:09)
[2024-07-06] MEDS ORDERED: LIDOCAINE 2%HCL (LOCAL ANESTH.) INJ 20ML MDV ONE (08:09)
--- NOTE | 2024-07-06 08:13 | DVHOP ---
DATE OF SURGERY: 07/06/2024 PROCEDURES PERFORMED: * Transesophageal echocardiography. * Conscious sedation. DESCRIPTION OF PROCEDURE: The patient was given adequate conscious sedation. Following conscious sedation, a transesophageal echocardiography Omniplane probe was used to intubate the esophagus. Standard transesophageal echo images obtained. There were no complications. The patient tolerated the procedure well. RESULTS: * Left ventricular function was preserved with an estimated EF of greater than 55%. * Left atrial enlargement. * The patient has trace tricuspid insufficiency. * Severe mitral regurgitation with central jet demonstrated. * No thrombus in the left atrial appendage. * No pericardial effusion. * Aortic anatomy and physiology were within normal limits. * The patient's ascending, descending, and transverse aorta were without any significant atheromatous plaquing. CONCLUSION: The patient with severe mitral regurgitation central jet. Therefore, the patient may be a candidate for mitral valve repair. We will continue to follow the patient. Mason Liriano MD SA/RC TID: [id number] RECEIPT: [id number]
[2024-07-06] MEDS ORDERED: NITROGLYCERIN 0.4MG/DOSE SPRAY 4.9GM ONE (08:54)
[2024-07-06] MEDS ORDERED: hydrALAZINE HCL 20 MG/ML VL ONE (08:56)
--- NOTE | 2024-07-06 09:33 | DVHOP ---
DATE OF SURGERY: 07/06/2024 PROCEDURE PERFORMED: Selective left and right coronary angiography, ventriculogram, right iliac angiography as well as right heart catheterization, [place] Hzael and conscious sedation. DESCRIPTION OF PROCEDURE: The patient was prepped and draped in sterile condition. Then, 1% Xylocaine used to anesthetize the right groin. Using a Cook needle, right femoral artery was engaged. With Seldinger technique, a 6-Mexican sheath was introduced into the right femoral artery. Similarly, a 6-Mexican sheath was introduced in the right femoral vein. Using a 6-Mexican balloon tipped thermodilutional catheter, right-sided pressure tracing was obtained. Using a 6-Mexican JL4 catheter and 6-Mexican JR4 catheter, selective left and right coronary angiography was performed. Using 6-Mexican pigtail catheter, ventriculogram was done. Total contrast used was 50 mL of Omnipaque. Total fluoroscopy time was 8 minutes. 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 * No flow restrictive lesion of the left anterior descending artery. * Circumflex artery without any flow restrictive lesion. Once again, nondominant vessel. * Right coronary artery without any flow restrictive lesion. * Left ventricular function showed hypodynamic contractility with an estimated EF of greater than 60%, with an LVEDP of 25 mmHg, dropping down to 18 mmHg with nitroglycerin. There was about a 10 mm gradient across the aortic outflow tract. * Right heart catheterization showed RA pressure of 15, RV pressure of 35/15, PA pressure of 38/18, and capillary wedge pressure of 18. Thus, the patient with severe 4+ mitral regurgitation. * Mitral annular calcification was noted. 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 * Coronary anatomy shows right coronary artery dominance without any flow restrictive lesion. * The patient with capillary wedge pressure of 18, LVEDP of 18-20 mmHg. * Xwchrhvc-zi-tgwzjp mitral regurgitation. * Left ventricular function is greater than 65%, with a 10 mm gradient across the aortic outflow tract. At this time, the patient with classic manifestation of severe mitral regurgitation, anomalous takeoff of the coronary anatomy as described above. The patient with a hypertrophic cardiomyopathy with a 10 mm gradient across the outflow tract. At this time, the patient may require mitral valve clipping or even mitral valve repair and may even require evaluation of a mitral valve repair. No other therapies required at this time. No catheter-based intervention of coronary anatomy is required at this time. Mason Liriano MD SA/JACINDA/EVANS TID: [id number] RECEIPT: [id number]
--- NOTE | 2024-07-06 09:42 | DVHDS ---
DATE OF DISCHARGE: 07/06/2024 DISCHARGE DIAGNOSES: * The patient with hypertrophic cardiomyopathy. * Diastolic heart failure. * Severe mitral regurgitation. * Mitral annular calcification. * Coronary anatomy without any lesion. * Right coronary artery dominance. 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 HOSPITAL COURSE: At this time, the patient is clinically stable and may be discharged home. Follow up with me in 1 week. Stable at the time of discharge. ACTIVITY: As instructed. DIET: 2 g sodium diet. Mason Liriano MD SA/MANNY/DORINA TID: [id number] RECEIPT: [id number]
--- NOTE | 2024-07-06 10:41 | DVHHP ---
ADMIT DATE: 07/06/2024 HISTORY OF PRESENT ILLNESS: The patient is a 49-year-old with a history of increasing shortness of breath. Transesophageal echocardiography shows severe mitral regurgitation with preserved left ventricular ejection fraction. The patient has left atrial enlargement as well. The patient is now to undergo left and right heart catheterization and also transesophageal echocardiography to reassess the patient's mitral regurgitation in preparation for either mitral valve replacement or mitral valve repair or even transvalvular intervention such as an Evalve for mitral valve clipping. Risks and benefits were explained to the patient. The patient understands and agrees. PERTINENT MEDICAL HISTORY: Significant for: * Shortness of breath. * Paroxysmal atrial fibrillation. * Hypercoagulable state. She denies any syncopal episode. No melena or hematochezia. No hematemesis or hemoptysis. No hematuria. No fever, no chills. No previous history of endocarditis. No history of IV drug use. No history of tobacco use as well. Denies any recent seizure disorder. No CVA. Denies any history of irritable bowel syndrome, mixed connective tissue disease, or inflammatory bowel disease. No history of lung disease such as COPD. No history of tobacco use as well. PHYSICAL EXAMINATION: VITAL SIGNS: Blood pressure is 124/80, pulse of 70 and regular, O2 saturation 96% on 2 liters. HEENT: Pupils are reactive. Funduscopic exam shows no AV nicking, no exudates, no papilledema, no exudate. Sclerae anicteric. Extraocular muscles are intact. Tympanic membranes are negative. Oral mucosa moist. Posterior pharynx without any exudates. NECK: No cervical adenopathy. No supraclavicular adenopathy. No axillary adenopathy. Carotid pulses are 2+, symmetrical. Normal upstroke and contour. PULMONARY: Clear to auscultation. Tympanic to percussion. No rhonchi. No wheezes. No egophony. CARDIOVASCULAR: Regular rate. There is a 2/6 systolic murmur at the apex radiating to the axilla and the back as well. ABDOMEN: Soft, nontender. Normal bowel sounds. SKIN: Unremarkable. EXTREMITIES: Unremarkable. ASSESSMENT AND PLAN: Thus, the patient with severe mitral regurgitation. It appears as though it is a central jet. Therefore, the patient may be a candidate for Evalve, mitral valve clipping. Therefore, at this time, I recommend the patient to undergo STANLEY and transesophageal echocardiography followed by left and right heart catheterization in preparation for mitral valve repair and replacement. Mason Liriano MD SA/YOSEF TID: [id number] RECEIPT: [id number]
== END 2024-07-06 11:51 | disposition home or self-care (01) ==
LOC: CATH 06:25
PROVIDERS: ATTEND Internal Medicine Cardiovascular Disease
DX: I34.0 Nonrheumatic mitral (valve) insufficiency (principal); I34.81 Nonrheumatic mitral (valve) annulus calcification; I42.2 Other hypertrophic cardiomyopathy; I48.0 Paroxysmal atrial fibrillation; I50.30 Unspecified diastolic (congestive) heart failure; Z98.51 Tubal ligation status; Z85.42 Personal history of malignant neoplasm of other parts of uterus; Z82.3 Family history of stroke; Z82.49 Family history of ischemic heart disease and other diseases of the circulatory system
CPT/HCPCS: 36415; 80048; 85025; 85610; 85730; 93312; 93325; 93460; C1760; C1769; C1894; J0360; J1644; J2250; Q9967; 99152; 99153

== ENCOUNTER 2024-11-16 23:22 | Emergency (ER) | payer MEDICAID ==
[~2024-11-16] VITALS: Ht 170.2 cm; Wt 73.8 kg
[2024-11-16 23:23] VITALS: BP 146/93; PULSE 85; RESP 16; TEMP 97.9; O2SAT 98
[2024-11-16] MEDS ORDERED: SODIUM CHLORIDE 0.9% 1,000 ML IV ONE (23:45)
--- NOTE | 2024-11-17 00:04 | ED.PDOC ---
MANAGER OF LEARNING HPI Comments Initial Vitals BP: 146/93 HR: 85 RR: 16 O2: 98% Temp: 97.9 Past Medical History: Hypertension, microcytic anemia, mi, AFib, hypertrophic obstructive cardiomyopathy, aortic and mitral valve regurgitation, uterine fibroids, HIV Past Surgical History: None Social History: Denies ETOH, smoking, and drug use. Allergies: No known drug allergies NATALI HPI: Poor Historian. 49-year-old female presents to emergency department for 2-1/2 week history of heavy vaginal bleeding. She reports 2-3 pads per hour. She denies any associated abdominal pain. She says she is passing dark red blood clots. Patient has history of uterine fibroids. Patient has a PCP's/OB Gyne doctor. Denies any other associated symptoms. Patient is not on any blood thinners. Patient in no acute distress on presentation. REVIEW OF SYSTEMS: CONSTITUTIONAL: Denies acute: fever, diaphoresis, chills, generalized weakness. HEAD: Denies acute: headache, photophobia Eyes: Denies acute: Double vision, vision loss, eye pain, eye discharge. EARS: Denies acute: tinnitus, hearing loss, ear discharge, ear pain, THROAT: Denies acute: sore throat, swelling, difficulty swallowing , pain with swallowing, change in voice. NECK: Denies acute: neck pain, neck swelling, stiff neck. HEART: Denies acute : chest pain, palpitations, LUNGS: Denies acute: SOB, wheezing, cough, hemoptysis ABDOMEN: Denies acute: abdominal pain, Nausea, Vomiting, diarrhea, melena , hematemesis, hematochezia SKIN: Denies acute: rash, redness, lesions, itchiness. EXTREMITIES: Denies acute: calf pain, numbness, tingling, weakness, denies pain in extremity. Denies acute: Low back pain. Neuro: Denies acute: focal neurological deficit, motor or sensory focal neurological deficit, tremors, seizure like activity, confusion, dizziness, change in mental status, loss of bowel or bladder function, cauda equina like symptoms. : Denies acute: dysuria, hematuria, flank pain, increase in urinary frequency. PSYCH: Denies acute: hallucination, suicidal ideation, homicidal ideation. FEMALE: Denies acute: , foul odor, unusual discharge. PHYSICAL EXAM: General: ----no----acute distress, awake and alert. Head: normocephalic, atraumatic. Neck: supple, trachea is midline, no swelling. Throat: Normal phonation. Eyes:, no erythema, no purulent discharge, no proptosis, no icterus. Heart: regular rate, regular rhythm, no significant murmur appreciated. Lungs: no apparent respiratory distress, Able to speak in full sentences. No wheezing, no rhonchi, no crackles. No stridors Clear to auscultation bilaterally. Abdomen: non tender to palpation, non distended, soft, no guarding, no rebound, + bowel sounds. Neuro: Awake, Alert, oriented to name, self, situation, follows commands GCS=15. Speech is normal. Skin: no petechia, no purpura, no cyanosis, non-pale, not jaundice. Lower extremities: --no - Pitting edema no deformity, no focal swelling, no calf TTP. Makes eye contact. moves all four extremities. Face: no apparent facial droop. Ambulating in the ED independently. ED COURSE: DISCLAIMER: This medical document was created using an electronic medical record system with voice recognition software and computerized dictation system. Although this document has been carefully reviewed, there might still be some phonetic and typographical errors. Occasional wrong-word or "sound-alike" substitutions may have occurred due to the inherent limitations of voice recognition software. These areas are purely typographical due to imperfections of the software programs and do not reflect any compromise in the patient's medical care. Please read the chart carefully and recognize, using context, where these substitutions have occurred. Chief Complaint: Vaginal Bleed Time Seen by MD: 00:04 Reviewed Notes: Allergies Allergies: Coded Allergies: NO KNOWN ALLERGIES (Unverified , 09/13/17) Home Meds Reported Medications Mavacamten (Camzyos) 5 Mg Cap, 5 MG PO DAILY for CARDIOMYOPATHY, CAP 07/04/24 Wqwxrewtepx-Qfymkqjtnjozm-Cfbc (Biktarvy 50-200-25 mg) 1 Tab Tab, 1 TAB PO DAILY for INFECTION, TAB 07/04/24 Cholecalciferol (Vitamin D3 1.25 mg ([address] Ut)) 1 Cap Cap, 1 CAP PO QWEEKLY for SUPPLEMENT, CAP 07/04/24 Information Source: Patient Mode of Arrival: Ambulatory Past Medical History PAST MEDICAL HISTORY: AFIB, HTN, [place] Past Medical History (Other): Hypertrophic obstructive cardiomyopathy Surgical History: Tubal Ligation RIDES ATTENDANT History: No Pertinent RIDES ATTENDANT History Family History Family History: Unknown Social History Smoker: Non-Smoker Alcohol: Denies ETOH Use Drugs: Denies Drug Use Lives In: Home Was a procedure done? Was a procedure done?: No Differential Diagnosis (RIDES ATTENDANT) Vaginal Bleeding: Blood Loss Anemia, Menorrhagia, Menometrorrhagia, Menstrual Bleeding, UTI X-Ray, Labs, Meds, VS Vital Signs Date Time Temp Pulse Resp B/P (MAP) Pulse Ox O2 Delivery O2 Flow Rate FiO2 11/16/24 23:23 97.9 85 16 146/93 98 97.9 Lab Test 11/17/24 00:46 Range/Units White Blood Count 4.3 L 4.4-10.8 10^3/uL Red Blood Count 4.26 4.0-5.20 10^6/uL Hemoglobin 11.8 L 12.2-16.2 g/dL Hematocrit 36.3 36.0-46.0 % Mean Corpuscular Volume 85.1 80.0-100.0 fL Mean Corpuscular Hemoglobin 27.7 L 28.0-32.0 pg Mean Corpuscular Hemoglobin Concent 32.6 32.0-36.0 g/dL Red Cell Distribution Width 15.7 H 11.8-14.3 % Platelet Count 178 140-450 10^3/uL Mean Platelet Volume 8.5 6.9-10.8 fL Neutrophils (%) (Auto) 52.7 37.0-80.0 % Lymphocytes (%) (Auto) 35.1 10.0-50.0 % Monocytes (%) (Auto) 8.7 0.0-12.0 % Eosinophils (%) (Auto) 2.9 0.0-7.0 % Basophils (%) (Auto) 0.6 0.0-2.0 % Neutrophils # (Auto) 2.3 1.6-8.6 10 ^3/uL Lymphocytes # (Auto) 1.5 0.4-5.4 10 ^3/uL Monocytes # (Auto) 0.4 0-1.3 10 ^3/uL Eosinophils # (Auto) 0.1 0-0.8 10 ^3/uL Basophils # (Auto) 0 0-0.2 10 ^3/uL Nucleated Red Blood Cells 0.1 % Sodium Level 140 136-145 mmol/L Potassium Level 4.6 3.5-5.1 mmol/L Chloride Level 107 98-107 mmol/L Carbon Dioxide Level 24 20-31 mmol/L Anion Gap 9 5-15 Blood Urea Nitrogen 15 9-23 mg/dL Creatinine 1.34 H 0.550-1.02 mg/dL Glomerular Filtration Rate Calc 49 >90 mL/min BUN/Creatinine Ratio 11.2 10.0-20.0 Serum Glucose 87 74-106 mg/dL Calcium Level 9.5 8.7-10.4 mg/dL Total Bilirubin 0.4 0.2-1.0 mg/dL Aspartate Amino Transferase (AST) 21 13-40 U/L Alanine Aminotransferase (ALT) 11 7-40 U/L Alkaline Phosphatase 87 46-116 U/L B-Type Natriuretic Peptide 166.56 0-100 pg/mL Total Protein 7.1 5.7-8.2 g/dL Albumin 3.9 3.2-4.8 g/dL [place] [address] Ph: [phone] DIAGNOSTIC IMAGING Diagnostic Imaging Report : [id number] Signed PATIENT: MAKAYLA HURST ACCT: [id number] UNIT: [id number] : 1975 LOC: ER ROOM / BED: / AGE / SEX: 49 / F ADM STATUS: REG ER SERVICE [id number] ORDERING PHYSICIAN: HIGINIO DONAHUE DO PROCEDURE(s): PELUS - PELVIC REASON: vag bleed ORDER NUMBER(s): [id number], ACCESSION NUMBER(s): [id number] Procedure: US PELVIC 11/16/2024 11:50 PM Indication: vag bleed Comparison: CT PELVIS WO CONTRAST on DOS: 10/05/22, CT CT AB PEL WO CON-NO ORAL OR IV on DOS: 09/19/22 Technique: Real-time grayscale and color images were obtained . FINDINGS: Limited transabdominal evaluation. UTERUS: Anteverted, measuring 9.9 x 6.8 x 5.1 cm in length. A 2.3 x 2.4 x 2.5 cm hypoechoic lesion with vascularity is seen. ENDOMETRIAL STRIPE: 10 mm in thickness. Homogenous echotexture. No fluid in the endometrial canal. CERVIX: Few subcentimeter simple Nabothian cysts are seen. RIGH OVARY: Not visualized. LEFT OVARY: Not visualized. CUL-DE-SAC: No significant fluid noted. OTHER: None. IMPRESSION: 1. Limited transabdominal evaluation. 2.5 cm hypoechoic lesion with vascularity is seen within the uterus, suboptimally assessed. Consider pelvic MRI with and without contrast in further assessment. 2. The ovaries were not visualized. ATED BY: BRANDY JENKINS MD DICTATED DATE/TIME: 11/17/24 0019 SIGNED BY: BRANDY JENKINS MD SIGNED DATE/TIME: 11/17/24 0019 CC: Time of 1ST Reevaluation: 00:00 Reevaluation 1ST: Unchanged Patient Education/Counseling: Diagnosis, Treatment Family Education/Counseling: No Family Present Departure 1 Departure Time of Disposition: 01:26 Impression: Primary Impression: Dysfunctional uterine bleeding Additional Impressions: Uterine fibroid Anemia Disposition: HOME / SELF CARE / HOMELESS Condition: Stable Additional Instructions: Additional instructions: Please read all instructions provided in this packet carefully. You MUST follow-up with your primary care/family doctor in 1 to 2 days. If you are unable to see your primary care/family doctor, please return to our emergency room for re-assessment and re-evaluation in 1 to 2 days. Return to the emergency room here in our facility or to the nearest ER [facility] if your symptoms change or worsen. CONSULTATIONS: you MUST Follow-up for consultation as soon as possible with: --OB Gyne doctor in 1-2 days. Please call for appointment-- You MUST call the consultants office yourself to make an appointment. You may need to arrange that through your insurance and/or your primary/family doctor. If you are unable to see the siebel consultant in 1 to 2 days, you must return to our emergency room (or any other ER of your choice) for re-assessment and re- evaluation. Adequate fluid hydration. Although you have been discharged from the Emergency Department, this does not mean that you have a "clean bill of health". No definitive diagnosis for your symptoms has been made today. It is possible that you are in the process of developing a serious illness. This is why you must return to the ED without fail if any new or worsening symptoms develop. Pelvic rest Repeat CBC in 24-48 hours Take daily iron supplements as instructed [id number]-[id number]. Below is a copy of your radiological report for follow up: [place] [address] Ph: [phone] DIAGNOSTIC IMAGING Diagnostic Imaging Report : [id number] Signed PATIENT: MAKAYLA HURST ACCT: [id number] UNIT: [id number] : 1975 LOC: ER ROOM / BED: / AGE / SEX: 49 / F ADM STATUS: REG ER SERVICE 2342 ORDERING PHYSICIAN: HIGINIO DONAHUE DO PROCEDURE(s): PELUS - PELVIC REASON: vag bleed ORDER NUMBER(s): [id number], ACCESSION NUMBER(s): [id number] Procedure: US PELVIC 11/16/2024 11:50 PM Indication: vag bleed Comparison: CT PELVIS WO CONTRAST on DOS: 10/05/22, CT CT AB PEL WO CON-NO ORAL OR IV on DOS: 09/19/22 Technique: Real-time grayscale and color images were obtained . FINDINGS: Limited transabdominal evaluation. UTERUS: Anteverted, measuring 9.9 x 6.8 x 5.1 cm in length. A 2.3 x 2.4 x 2.5 cm hypoechoic lesion with vascularity is seen. ENDOMETRIAL STRIPE: 10 mm in thickness. Homogenous echotexture. No fluid in the endometrial canal. CERVIX: Few subcentimeter simple Nabothian cysts are seen. RIGH OVARY: Not visualized. LEFT OVARY: Not visualized. CUL-DE-SAC: No significant fluid noted. OTHER: None. IMPRESSION: 1. Limited transabdominal evaluation. 2.5 cm hypoechoic lesion with vascularity is seen within the uterus, suboptimally assessed. Consider pelvic MRI with and without contrast in further assessment. 2. The ovaries were not visualized. ATED BY: BRANDY JENKINS MD DICTATED DATE/TIME: 11/17/2418 SIGNED BY: BRANDY JENKINS MD SIGNED DATE/TIME: 11/17/2418 CC: Discharged With: Self Critical Care Note Critical Care Time?: No Stability Stability form required: No I personally scribed for HIGINIO DONAHUE DO ([email or web address]) on 11/17/24 at 00:04. Electronically submitted by Edward Guaman ([facility]). I personally scribed for HIGINIO DONAHUE DO ([email or web address]) on 11/17/24 at 00:46. Electronically submitted by Edward Guaman ([facility]). I personally scribed for HIGNIIO DONAHUE DO ([email or web address]) on 11/17/24 at 01:31. Electronically submitted by Edward Guaman ([facility]). HIGINIO DONAHUE DO Nov 17, 2024 00:04
--- NOTE | 2024-11-17 00:21 | DVH ---
Procedure: US PELVIC 11/16/2024 11:50 PM Indication: vag bleed Comparison: CT PELVIS WO CONTRAST on DOS: 10/05/22, CT CT AB PEL WO CON-NO ORAL OR IV on DOS: 09/19/22 Technique: Real-time grayscale and color images were obtained . FINDINGS: Limited transabdominal evaluation. UTERUS: Anteverted, measuring 9.9 x 6.8 x 5.1 cm in length. A 2.3 x 2.4 x 2.5 cm hypoechoic lesion with vascularity is seen. ENDOMETRIAL STRIPE: 10 mm in thickness. Homogenous echotexture. No fluid in the endometrial canal. CERVIX: Few subcentimeter simple Nabothian cysts are seen. RIGH OVARY: Not visualized. LEFT OVARY: Not visualized. CUL-DE-SAC: No significant fluid noted. OTHER: None. IMPRESSION: 1. Limited transabdominal evaluation. 2.5 cm hypoechoic lesion with vascularity is seen within the ut erus, suboptimally assessed. Consider pelvic MRI with and without contrast in further assessment. 2. The ovaries were not visualized.
[2024-11-17 01:02] LABS: Hematocrit 36.3 % (36.0-46.0); Hemoglobin 11.8 g/dL (12.2-16.2); Mean Corpuscular Hemoglobin 27.7 pg (28.0-32.0); Mean Corpuscular Volume 85.1 fL (80.0-100.0); Nucleated Red Blood Cells % 0.1 %
[2024-11-17 01:20] LABS: Alanine Aminotransferase 11 U/L (7-40); Albumin 3.9 g/dL (3.2-4.8); Alkaline Phosphatase 87 U/L (46-116); Anion Gap 9 (5-15); BUN/Creatinine Ratio 11.2 (10.0-20.0); Blood Urea Nitrogen 15 mg/dL (9-23); Calcium 9.5 mg/dL (8.7-10.4); Carbon Dioxide 24 mmol/L (20-31); Glucose 87 mg/dL (74-106); Potassium 4.6 mmol/L (3.5-5.1); Sodium 140 mmol/L (136-145); Total Protein 7.1 g/dL (5.7-8.2)
[2024-11-17 01:21] LABS: Bilirubin, Total 0.4 mg/dL (0.2-1.0); Chloride 107 mmol/L (98-107)
== END 2024-11-17 02:07 | disposition home or self-care (01) ==
LOC: ER 23:22
DX: N93.8 Other specified abnormal uterine and vaginal bleeding (principal); D25.9 Leiomyoma of uterus, unspecified; D64.9 Anemia, unspecified; I10 Essential (primary) hypertension; I48.91 Unspecified atrial fibrillation; I21.9 Acute myocardial infarction, unspecified; Z86.018 Personal history of other benign neoplasm; Z79.624 Long term (current) use of inhibitors of nucleotide synthesis; Z98.51 Tubal ligation status
CPT/HCPCS: 36415; 76856; 80053; 83880; 85025; 86850; 86900; 86901